=== PATIENT | male | born 1965 | race Caucasian/White ===

== ENCOUNTER → 2016-12-11 | Outpatient (CLI) | payer MEDICARE ==
[~2016-12-11] MED LIST: /MOXI40TA OR; ACET65TA OR; ALBUTEROL INH; HYDR25TA6 OR; LEVO25TABR OR; LIPI10TA OR; PERC5TAB8 OR; ZEST10TA OR; ZOCO40TA PO
--- NOTE | 2016-12-11 13:35 | REP ---
CERVICAL SPINE SERIES, COMPLETE: 12/11/2016. Comparison: 10/15/2006. Clinical history: Neck pain. Stiffness. Findings: Eight views were provided. There is slight reversal of the normal cervical lordosis unchanged. Cervical spondylosis with anterior osteophytes greatest at C2-3 and C3-4. The C7 level is not well depicted except on the swimmer's projection. The disc space heights are maintained. There is no compression deformity. Flexion and extension shows slight decreased range of motion but no instability. The C1-2 relationships were normal on all views. Some hypertrophic facet changes are noted but no definite foraminal encroachment. Impression: 1. Degenerative disc changes at C2-3 and C3-4 with anterior osteophytes but no disc space narrowing. 2. Reversal of the lordosis may reflect some spasm, but the appearance is unchanged. Decreased range of motion also may suggest spasm. No acute bony finding. Signed by Trent Chakraborty MD 12/11/2016 02:30 P
== END ==
LOC: M RAD 09:49
PROVIDERS: ATTEND Family Medicine
DX: M50.31 Other cervical disc degeneration, high cervical region (principal)

== ENCOUNTER 2016-12-21 10:16 | Emergency (ER) | payer MEDICARE ==
--- NOTE | 2016-12-21 12:02 | EDDOCDS ---
Physician Documentation [facility] Name: Bill Laboy Age: 51 yrs Sex: Male : 1965 Arrival Date: 12/21/2016 Time: 10:16 Bed TR7 Private MD: Andres Mcmahan A. Disposition: 12/21/16 11:49 Discharged to Home/Self Care. Impression: Unilateral inguinal hernia, without obstruction or gangrene, recurrent - LEFT. - Condition is Stable. - Discharge Instructions: Inguinal Hernia, Adult. - Medication Reconciliation, Local Pharmacy Hours form. - Follow up: Ivan Lux DO; When: Call to arrange an appointment; Reason: Further diagnostic work-up, Recheck today's complaints, Continuance of care. - Problem is new. - Symptoms are unchanged. Historical: - Allergies: Morphine (color turns green); - Home Meds: 1. levothyroxine 75 mcg Oral cap 1 cap once daily (Last dose: 12/21/2016 04:30) 2. hydrochlorothiazide 25 mg Oral tab 1 tab once daily (Last dose: 12/21/2016 07:30) 3. Vitamin C 500 mg Oral tab daily (Last dose: 12/21/2016 07:30) 4. multivitamin Oral tab 1 tablet daily (Last dose: 12/21/2016 07:30) 5. prednisone 20 mg Oral tab once daily (Last dose: 12/21/2016 07:30) 6. Coricidin HBP Day-Night 10-200 mg(dy)/2 -15-500 mg(nt) oral TCSq daily (Last dose: 12/21/2016 07:30) - PMHx: Hypertension; Hypothyroidism; - PSHx: right knee arthroscopy; Hernia repair- Left inguinal; Hernia repair- Right inguinal; hernia repair bilateral; - Social history: Smoking status: Patient states former smoker of tobacco. No barriers to communication noted, The patient speaks fluent Swedish. - Family history: Not pertinent. - : The pt / caregiver states he / she is not on anticoagulants. Home medication list is obtained from the patient. - Exposure Risk Screening:: None identified. Vital Signs: 12/21 10:18 BP 147 / 91; Pulse 86; Resp 16; Temp 97.8(O); Pulse Ox 96% on R/A; Weight 127.91 kg / elp 281.99 lbs (R); Height 5 ft. 11 in. (180.34 cm) (R); 11:58 BP 134 / 78; Pulse 80; Resp 16; Temp 97.3(T); Pulse Ox 95% on R/A; dwg 10:18 Body Mass Index 39.33 (127.91 kg, 180.34 cm) elp MDM: 11:51 Financial registration complete. lg Signatures: Ivan Dee RN RN [facility] Astrid Bravo RN RN kpj Ganter, LoriLee, Reg Reg lg Jignesh Bradshaw, SHAYY LUCAS btw MTDD
--- NOTE | 2016-12-21 12:02 | EDDOCDS ---
Nurse's Notes [facility] Name: Bill Laboy Age: 51 yrs Sex: Male : 1965 Arrival Date: 12/21/2016 Time: 10:16 Bed TR7 Private MD: Andres Mcmahan A. Diagnosis: Unilateral inguinal hernia, without obstruction or gangrene, recurrent-LEFT Presentation: 12/21 10:37 Presenting complaint: Patient states: pain left groin x 1 day. Adult Sepsis Screening: [facility] The patient does not have new or worsening altered mentation. Patient's respiratory rate is less than 22. Systolic blood pressure is greater than 100. Patient has a qSOFA score of 0- Negative Sepsis Screen. Suicide/Homicide risk assessment- the patient denies having any suicidal and/or homicidal ideations and does not present with any other emotional, behavioral or mental health complaints. Status: Patient is not a field service technician or dependent. Transition of care: patient was not received from another setting of care. 10:37 Acuity: ESTELA Level 3 [facility] 10:37 Method Of Arrival: Walkin/Carried/Asstd [facility] Triage Assessment: 10:43 General: Appears in no apparent distress, Behavior is appropriate for age, pleasant. [facility] Pain: Location: left inguinal area Pain currently is 10 out of 10 on a pain scale. Pt Declines HIV testing. Neurological: Level of Consciousness is awake, alert, Oriented to person, place, time. Respiratory: Airway is patent Respiratory effort is even, unlabored, Respiratory pattern is regular, symmetrical. GI: Reports lower abdominal pain, Pain is 10 out of 10 on a pain scale. Derm: Skin is pink, warm & dry. Historical: - Allergies: Morphine (color turns green); - Home Meds: 1. levothyroxine 75 mcg Oral cap 1 cap once daily (Last dose: 12/21/2016 04:30) 2. hydrochlorothiazide 25 mg Oral tab 1 tab once daily (Last dose: 12/21/2016 07:30) 3. Vitamin C 500 mg Oral tab daily (Last dose: 12/21/2016 07:30) 4. multivitamin Oral tab 1 tablet daily (Last dose: 12/21/2016 07:30) 5. prednisone 20 mg Oral tab once daily (Last dose: 12/21/2016 07:30) 6. Coricidin HBP Day-Night 10-200 mg(dy)/2 -15-500 mg(nt) oral TCSq daily (Last dose: 12/21/2016 07:30) - PMHx: Hypertension; Hypothyroidism; - PSHx: right knee arthroscopy; Hernia repair- Left inguinal; Hernia repair- Right inguinal; hernia repair bilateral; - Social history: Smoking status: Patient states former smoker of tobacco. No barriers to communication noted, The patient speaks fluent Argentine. - Family history: Not pertinent. - : The pt / caregiver states he / she is not on anticoagulants. Home medication list is obtained from the patient. - Exposure Risk Screening:: None identified. Screenin:59 Screening information is obtained from the patient. Fall risk: No risks identified. dwg Assistance ADL's: requires no assistance with activities of daily living. Abuse/DV Screen: The patient / caregiver reports he/she is: not in a situation that causes fear, pain or injury. Nutritional screening: No deficits noted. Advance Directives: Currently, there is no health care proxy. There is no active DNR order. There is no living will. There is no Power of Dean Of Graduate Studies. Advance directive information has not previously been placed in an [facility] medical record. Further advance directive information is declined. home support is adequate. Assessment: 11:14 General: Appears in no apparent distress, Behavior is appropriate for age. Pain: dsf Location: left inguinal area Pain currently is 8 out of 10 on a pain scale. Quality of pain is described as sharp, Pain began 2-3 days ago Is intermittent. Neurological: Level of Consciousness is awake, alert. Cardiovascular: Capillary refill < 3 seconds. Respiratory: Airway is patent Respiratory effort is even, unlabored, Respiratory pattern is regular, symmetrical. GI: Abdomen is obese. Derm: Skin is pink, warm & dry. Vital Signs: 10:18 BP 147 / 91; Pulse 86; Resp 16; Temp 97.8(O); Pulse Ox 96% on R/A; Weight 127.91 kg elp (R); Height 5 ft. 11 in. (180.34 cm) (R); 11:58 BP 134 / 78; Pulse 80; Resp 16; Temp 97.3(T); Pulse Ox 95% on R/A; dwg 10:18 Body Mass Index 39.33 (127.91 kg, 180.34 cm) elp Vitals: 10:18 Log In Time: December 21, 2016 at 10:15. elp ED Course: 10:17 Patient visited by Colleen Pond PCA. elp 10:17 Patient moved to Waiting elp 10:18 Andres Mcmahan is Private Physician. elp 10:18 Patient visited by Colleen Pond PCA. elp 10:18 Patient moved to Pre RCE elp 10:38 Triage Initiated kpj 11:12 Patient moved to Triage 3 dsf 11:15 Patient visited by Brea Rosas RN. dsf 11:37 [facility] btw 11:37 Ivett Salinas MD is Attending Physician. btw 11:37 Patient visited by Jignesh Bradshaw PA. btw 11:48 Ivan Lux DO is Referral Physician. btw 11:58 Patient moved to TR7 dsf 12:00 The patient / caregiver is instructed regarding the plan of care and ED course. dwg 12:00 No IV's were initiated during this patient's visit. No procedures done that require dwg assistance. Order Results: There are currently no results for this order. Outcome: 11:49 Discharge ordered by Provider. btw 11:59 Discharge Assessment: Patient awake, alert and oriented x 3. No cognitive and/or dwg functional deficits noted. Patient verbalized understanding of disposition instructions. patient administered narcotics - no. The following High Risk Discharge criteria are identified: None. Discharged to home ambulatory. Condition: good Condition: stable. No special radiology studies were completed. Property sent home with patient. 12:00 Patient left the ED. dwg Signatures: Ivan Dee, RN RN dwg Astrid Bravo RN RN [facility] Jignesh Bradshaw PA PA btw Brea Rosas RN RN [facility] Colleen Pond PCA CPS TEAM LEAD elp MTDD
--- NOTE | 2016-12-23 13:02 | EDDOCDS ---
Nurse's Notes [facility] Name: Bill Laboy Age: 51 yrs Sex: Male : 1965 Arrival Date: 12/21/2016 Time: 10:16 Bed TR7 Private MD: Andres Mcmahan A. Diagnosis: Unilateral inguinal hernia, without obstruction or gangrene, recurrent-LEFT Presentation: 12/21 10:37 Presenting complaint: Patient states: pain left groin x 1 day. Adult Sepsis Screening: [facility] The patient does not have new or worsening altered mentation. Patient's respiratory rate is less than 22. Systolic blood pressure is greater than 100. Patient has a qSOFA score of 0- Negative Sepsis Screen. Suicide/Homicide risk assessment- the patient denies having any suicidal and/or homicidal ideations and does not present with any other emotional, behavioral or mental health complaints. Status: Patient is not a card services specialist or dependent. Transition of care: patient was not received from another setting of care. 10:37 Acuity: ESTELA Level 3 [facility] 10:37 Method Of Arrival: Walkin/Carried/Asstd [facility] Triage Assessment: 10:43 General: Appears in no apparent distress, Behavior is appropriate for age, pleasant. [facility] Pain: Location: left inguinal area Pain currently is 10 out of 10 on a pain scale. Pt Declines HIV testing. Neurological: Level of Consciousness is awake, alert, Oriented to person, place, time. Respiratory: Airway is patent Respiratory effort is even, unlabored, Respiratory pattern is regular, symmetrical. GI: Reports lower abdominal pain, Pain is 10 out of 10 on a pain scale. Derm: Skin is pink, warm & dry. Historical: - Allergies: Morphine (color turns green); - Home Meds: 1. levothyroxine 75 mcg Oral cap 1 cap once daily (Last dose: 12/21/2016 04:30) 2. hydrochlorothiazide 25 mg Oral tab 1 tab once daily (Last dose: 12/21/2016 07:30) 3. Vitamin C 500 mg Oral tab daily (Last dose: 12/21/2016 07:30) 4. multivitamin Oral tab 1 tablet daily (Last dose: 12/21/2016 07:30) 5. prednisone 20 mg Oral tab once daily (Last dose: 12/21/2016 07:30) 6. Coricidin HBP Day-Night 10-200 mg(dy)/2 -15-500 mg(nt) oral TCSq daily (Last dose: 12/21/2016 07:30) - PMHx: Hypertension; Hypothyroidism; - PSHx: right knee arthroscopy; Hernia repair- Left inguinal; Hernia repair- Right inguinal; hernia repair bilateral; - Social history: Smoking status: Patient states former smoker of tobacco. No barriers to communication noted, The patient speaks fluent Kittitian. - Family history: Not pertinent. - : The pt / caregiver states he / she is not on anticoagulants. Home medication list is obtained from the patient. - Exposure Risk Screening:: None identified. Screenin:59 Screening information is obtained from the patient. Fall risk: No risks identified. dwg Assistance ADL's: requires no assistance with activities of daily living. Abuse/DV Screen: The patient / caregiver reports he/she is: not in a situation that causes fear, pain or injury. Nutritional screening: No deficits noted. Advance Directives: Currently, there is no health care proxy. There is no active DNR order. There is no living will. There is no Power of Push Button Switch Assembler. Advance directive information has not previously been placed in an [facility] medical record. Further advance directive information is declined. home support is adequate. Assessment: 11:14 General: Appears in no apparent distress, Behavior is appropriate for age. Pain: dsf Location: left inguinal area Pain currently is 8 out of 10 on a pain scale. Quality of pain is described as sharp, Pain began 2-3 days ago Is intermittent. Neurological: Level of Consciousness is awake, alert. Cardiovascular: Capillary refill < 3 seconds. Respiratory: Airway is patent Respiratory effort is even, unlabored, Respiratory pattern is regular, symmetrical. GI: Abdomen is obese. Derm: Skin is pink, warm & dry. Vital Signs: 10:18 BP 147 / 91; Pulse 86; Resp 16; Temp 97.8(O); Pulse Ox 96% on R/A; Weight 127.91 kg elp (R); Height 5 ft. 11 in. (180.34 cm) (R); 11:58 BP 134 / 78; Pulse 80; Resp 16; Temp 97.3(T); Pulse Ox 95% on R/A; dwg 10:18 Body Mass Index 39.33 (127.91 kg, 180.34 cm) elp Vitals: 10:18 Log In Time: December 21, 2016 at 10:15. elp ED Course: 10:17 Patient visited by Colleen Pond PCA. elp 10:17 Patient moved to Waiting elp 10:18 Andres Mcmahan is Private Physician. elp 10:18 Patient visited by Colleen Pond PCA. elp 10:18 Patient moved to Pre RCE elp 10:38 Triage Initiated kpj 11:12 Patient moved to Triage 3 dsf 11:15 Patient visited by Brea Rosas RN. dsf 11:37 Jignesh Bradshaw PA is [facility]. btw 11:37 Ivett Salinas MD is Attending Physician. btw 11:37 Patient visited by Jignesh Bradshaw PA. btw 11:48 Ivan Lux DO is Referral Physician. btw 11:58 Patient moved to TR7 dsf 12:00 The patient / caregiver is instructed regarding the plan of care and ED course. dwg 12:00 No IV's were initiated during this patient's visit. No procedures done that require dwg assistance. 12:07 Patient name changed from Bill\S\Petey\S\[place]\S\ to Bill\S\A\S\[place]. EDMS 12:08 [facility] Payment Agreement was scanned into [employer] and attached to record. lg 15:08 T-Sheet-- Draft Copy was scanned into [employer] and attached to record. gb Order Results: There are currently no results for this order. Outcome: 11:49 Discharge ordered by Provider. btw 11:59 Discharge Assessment: Patient awake, alert and oriented x 3. No cognitive and/or dwg functional deficits noted. Patient verbalized understanding of disposition instructions. patient administered narcotics - no. The following High Risk Discharge criteria are identified: None. Discharged to home ambulatory. Condition: good Condition: stable. No special radiology studies were completed. Property sent home with patient. 12:00 Patient left the ED. dwg Signatures: Dispatcher [employer] EDMS Ivan Dee RN RN dwg Jobson, Karen, RN RN [facility] Avis Butts, Reg Reg Roxana Mauro, Reg Reg lg Jignesh Bradshaw PA PA btw Rosas,Brea,RN RN dsf Patchen, Colleen, KNOT BUMPER KNOT BUMPER elp Chart Complete MTDD
--- NOTE | 2016-12-23 13:02 | EDDOCDS ---
Physician Documentation [facility] Name: Bill Laboy Age: 51 yrs Sex: Male : 1965 Arrival Date: 12/21/2016 Time: 10:16 Bed TR7 Private MD: Andres Mcmahan A. Disposition: 12/21/16 11:49 Discharged to Home/Self Care. Impression: Unilateral inguinal hernia, without obstruction or gangrene, recurrent - LEFT. - Condition is Stable. - Discharge Instructions: Inguinal Hernia, Adult. - Medication Reconciliation, Local Pharmacy Hours form. - Follow up: Ivan Lux DO; When: Call to arrange an appointment; Reason: Further diagnostic work-up, Recheck today's complaints, Continuance of care. - Problem is new. - Symptoms are unchanged. Historical: - Allergies: Morphine (color turns green); - Home Meds: 1. levothyroxine 75 mcg Oral cap 1 cap once daily (Last dose: 12/21/2016 04:30) 2. hydrochlorothiazide 25 mg Oral tab 1 tab once daily (Last dose: 12/21/2016 07:30) 3. Vitamin C 500 mg Oral tab daily (Last dose: 12/21/2016 07:30) 4. multivitamin Oral tab 1 tablet daily (Last dose: 12/21/2016 07:30) 5. prednisone 20 mg Oral tab once daily (Last dose: 12/21/2016 07:30) 6. Coricidin HBP Day-Night 10-200 mg(dy)/2 -15-500 mg(nt) oral TCSq daily (Last dose: 12/21/2016 07:30) - PMHx: Hypertension; Hypothyroidism; - PSHx: right knee arthroscopy; Hernia repair- Left inguinal; Hernia repair- Right inguinal; hernia repair bilateral; - Social history: Smoking status: Patient states former smoker of tobacco. No barriers to communication noted, The patient speaks fluent Amharic. - Family history: Not pertinent. - : The pt / caregiver states he / she is not on anticoagulants. Home medication list is obtained from the patient. - Exposure Risk Screening:: None identified. Vital Signs: 12/21 10:18 BP 147 / 91; Pulse 86; Resp 16; Temp 97.8(O); Pulse Ox 96% on R/A; Weight 127.91 kg / elp 281.99 lbs (R); Height 5 ft. 11 in. (180.34 cm) (R); 11:58 BP 134 / 78; Pulse 80; Resp 16; Temp 97.3(T); Pulse Ox 95% on R/A; dwg 10:18 Body Mass Index 39.33 (127.91 kg, 180.34 cm) elp MDM: 11:51 Financial registration complete. lg 12:08 [facility] Payment Agreement was scanned into [employer] and attached to record. lg 15:08 T-Sheet-- Draft Copy was scanned into [employer] and attached to record. gb Signatures: Ivan Dee RN RN Astrid Mendez, RN RN Avis Manrique, Reg Reg gb Roxana Mauro, Reg Reg lg Jignesh Bradshaw, SHAYY LUCAS btw The chart was reviewed and I authenticate all verbal orders and agree with the evaluation and treatment provided.Attachments: 12:08 [facility] Payment Agreement lg 15:08 T-Sheet-- Draft Copy gb Chart Complete MTDD
--- NOTE | 2016-12-23 13:02 | EDDOCDS ---
Physician Documentation [facility] Name: Bill Laboy Age: 51 yrs Sex: Male : 1965 Arrival Date: 12/21/2016 Time: 10:16 Bed TR7 Private MD: Andres Mcmahan A. Disposition: 12/21/16 11:49 Discharged to Home/Self Care. Impression: Unilateral inguinal hernia, without obstruction or gangrene, recurrent - LEFT. - Condition is Stable. - Discharge Instructions: Inguinal Hernia, Adult. - Medication Reconciliation, Local Pharmacy Hours form. - Follow up: Ivan Lux DO; When: Call to arrange an appointment; Reason: Further diagnostic work-up, Recheck today's complaints, Continuance of care. - Problem is new. - Symptoms are unchanged. Historical: - Allergies: Morphine (color turns green); - Home Meds: 1. levothyroxine 75 mcg Oral cap 1 cap once daily (Last dose: 12/21/2016 04:30) 2. hydrochlorothiazide 25 mg Oral tab 1 tab once daily (Last dose: 12/21/2016 07:30) 3. Vitamin C 500 mg Oral tab daily (Last dose: 12/21/2016 07:30) 4. multivitamin Oral tab 1 tablet daily (Last dose: 12/21/2016 07:30) 5. prednisone 20 mg Oral tab once daily (Last dose: 12/21/2016 07:30) 6. Coricidin HBP Day-Night 10-200 mg(dy)/2 -15-500 mg(nt) oral TCSq daily (Last dose: 12/21/2016 07:30) - PMHx: Hypertension; Hypothyroidism; - PSHx: right knee arthroscopy; Hernia repair- Left inguinal; Hernia repair- Right inguinal; hernia repair bilateral; - Social history: Smoking status: Patient states former smoker of tobacco. No barriers to communication noted, The patient speaks fluent Malay. - Family history: Not pertinent. - : The pt / caregiver states he / she is not on anticoagulants. Home medication list is obtained from the patient. - Exposure Risk Screening:: None identified. Vital Signs: 12/21 10:18 BP 147 / 91; Pulse 86; Resp 16; Temp 97.8(O); Pulse Ox 96% on R/A; Weight 127.91 kg / elp 281.99 lbs (R); Height 5 ft. 11 in. (180.34 cm) (R); 11:58 BP 134 / 78; Pulse 80; Resp 16; Temp 97.3(T); Pulse Ox 95% on R/A; dwg 10:18 Body Mass Index 39.33 (127.91 kg, 180.34 cm) elp MDM: 11:51 Financial registration complete. lg 12:08 [facility] Payment Agreement was scanned into [employer] and attached to record. lg 15:08 T-Sheet-- Draft Copy was scanned into [employer] and attached to record. gb Signatures: Ivan Dee RN RN Astrid Mendez, RN RN Avis Manrique, Reg Reg gb Roxana Mauro, Reg Reg lg Jignesh Bradshaw, SHAYY LUCAS btw The chart was reviewed and I authenticate all verbal orders and agree with the evaluation and treatment provided.Attachments: 12:08 [facility] Payment Agreement lg 15:08 T-Sheet-- Draft Copy gb Chart Complete MTDD
== END 2016-12-21 12:00 | disposition home or self-care (01) ==
LOC: M ED 10:16
DX: K40.90 Unilateral inguinal hernia, without obstruction or gangrene, not specified as recurrent (principal); I10 Essential (primary) hypertension; E03.9 Hypothyroidism, unspecified; Z79.899 Other long term (current) drug therapy; Z79.52 Long term (current) use of systemic steroids; Z88.5 Allergy status to narcotic agent; Z87.891 Personal history of nicotine dependence

== ENCOUNTER → 2017-03-14 | Outpatient (CLI) | payer MEDICARE ==
[~2017-03-14] VITALS: Ht 180.3 cm; Wt 127.0 kg
[~2017-03-14] MED LIST changes: +ASPI81TA85 PO; +HYDR25TAB PO; +LIDOCAINE 2% INJ 100 MG/5 ML SDV (FOR ANES.) As Ordered ONE; +LIPI20TA PO; +LISI-538 PO; +MULT1TAB28 PO; +NS 1,000 ML IV ONE; +PROPOFOL 500 MG/50 ML VIAL As Ordered ONE; +SYNT75TA PO; +VITA-130 PO
--- NOTE | 2017-03-14 11:13 | ROOR ---
Patient Name: Bill aLboy Procedure Date: 03/14/2017 10:56 AM Date of : 1965 Age: 51 Room: [facility] Gender: Male Note Status: Finalized Procedure: Upper GI endoscopy +n Biopsies Indications: Heartburn Providers: Matthew Shirley MD Referring MD: Andres Mcmahan MD Requesting Provider: Medicines: Monitored Anesthesia Care Complications: No immediate complications. Procedure: Pre-Anesthesia Assessment: - The heart rate, respiratory rate, oxygen saturations, blood pressure, adequacy of pulmonary ventilation, and response to care were monitored throughout the procedure. The Endoscope was introduced through the mouth, and advanced to the second part of duodenum. The upper GI endoscopy was accomplished without difficulty. The patient tolerated the procedure well. Findings: The Z-line was regular and was found 40 cm from the incisors. Multiple biopsies were obtained with cold forceps for evaluation to rule out Hi's Esophagus randomly at the gastroesophageal junction. No other significant abnormalities were identified in a careful examination of the stomach. The exam of the duodenum was otherwise normal. Impression: - Z-line regular, 40 cm from the incisors. - Multiple biopsies were obtained at the gastroesophageal junction. - The examination was otherwise normal. Recommendation: - Patient has a contact number available for emergencies. The signs and symptoms of potential delayed complications were discussed with the patient. Return to normal activities tomorrow. Written discharge instructions were provided to the patient. - High fiber diet. - Discharge patient to home. - Follow an antireflux regimen. - Continue present medications. - Await pathology results. - Telephone GI clinic for pathology results in 1 week. - Check Portal Online for Path Results.([email or web address] - Return to referring physician. - The findings and recommendations were discussed with the patient's family. Matthew Shirley MD Matthew Shirley MD 03/14/2017 11:13:25 AM This report has been signed electronically. Number of Addenda: 0 Note Initiated On: 03/14/2017 10:56 AM Estimated Blood Loss: Estimated blood loss: none.
--- NOTE | 2017-03-14 11:27 | ROOR ---
Patient Name: Bill Laboy Procedure Date: 03/14/2017 10:58 AM Date of : 1965 Age: 51 Room: [facility] Gender: Male Note Status: Finalized Procedure: Colonoscopy to Cecum Indications: Screening for colorectal malignant neoplasm Providers: Matthew Shirley MD Referring MD: Andres Mcmahan MD Requesting Provider: Medicines: Monitored Anesthesia Care Complications: No immediate complications. Procedure: Pre-Anesthesia Assessment: - The heart rate, respiratory rate, oxygen saturations, blood pressure, adequacy of pulmonary ventilation, and response to care were monitored throughout the procedure. The Colonoscope was introduced through the anus and advanced to the cecum, identified by appendiceal orifice and ileocecal valve. The colonoscopy was performed without difficulty. The patient tolerated the procedure well. The quality of the bowel preparation was good. Findings: The perianal and digital rectal examinations were normal. Non-bleeding internal hemorrhoids were found during retroflexion. The hemorrhoids were small and Grade I (internal hemorrhoids that do not prolapse). No other significant abnormalities were identified in a careful examination of the remainder of the colon. The exam was otherwise without abnormality on direct and retroflexion views. Impression: - Non-bleeding internal hemorrhoids. - The examination was otherwise normal on direct and retroflexion views. - No specimens collected. - The exam was otherwise normal to the cecum. Recommendation: - Patient has a contact number available for emergencies. The signs and symptoms of potential delayed complications were discussed with the patient. Return to normal activities tomorrow. Written discharge instructions were provided to the patient. - High fiber diet. - Discharge patient to home. - Continue present medications. - Repeat colonoscopy in 10 years for screening purposes. - Return to referring physician. - The findings and recommendations were discussed with the patient's family. Matthew Shirley MD Matthew Shirley MD 03/14/2017 11:27:13 AM This report has been signed electronically. Number of Addenda: 0 Note Initiated On: 03/14/2017 10:58 AM Estimated Blood Loss: Estimated blood loss: none.
[2017-03-14 12:01] VITALS: BP 117/73
== END | disposition home or self-care (01) ==
LOC: M OPP 09:45
PROVIDERS: ATTEND Internal Medicine Gastroenterology
DX: Z12.11 Encounter for screening for malignant neoplasm of colon (principal); K64.0 First degree hemorrhoids; R12 Heartburn; I10 Essential (primary) hypertension; E78.5 Hyperlipidemia, unspecified; E03.9 Hypothyroidism, unspecified; K44.9 Diaphragmatic hernia without obstruction or gangrene; G47.30 Sleep apnea, unspecified; L40.9 Psoriasis, unspecified; Z88.5 Allergy status to narcotic agent; Z79.82 Long term (current) use of aspirin; Z79.899 Other long term (current) drug therapy; F17.210 Nicotine dependence, cigarettes, uncomplicated
CPT/HCPCS: 43239; 88305; 99156; 99157; G0121

== ENCOUNTER → 2017-06-13 | Outpatient (CLI) | payer OTHER ==
[~2017-06-13] MED LIST changes: -LIDOCAINE 2% INJ 100 MG/5 ML SDV (FOR ANES.) As Ordered ONE; -NS 1,000 ML IV ONE; -PROPOFOL 500 MG/50 ML VIAL As Ordered ONE; -VITA-130 PO; +VITA500T PO
[2017-06-13 11:28] LABS: MEAN CORPUSCULAR HEMOGLOBIN 33.6 pg (27.0-33.0); MEAN CORPUSCULAR HGB CONC 36.4 g/dl (32.0-36.5); MEAN CORPUSCULAR VOLUME 92.4 fl (80.0-96.0); RED CELL DISTRIBUTION WIDTH 12.6 % (11.5-14.5); WHITE BLOOD COUNT 4.7 K/mm3 (4.0-10.0)
[2017-06-13 13:31] LABS: ALBUMIN/GLOBULIN RATIO 1.38 (1.00-1.93); ALKALINE PHOSPHATASE 56 U/L (45-117); ALT/SGPT 43 U/L (12-78); ANION GAP 9 MEQ/L (8-16); AST/SGOT 19 U/L (15-37); BILIRUBIN,TOTAL 0.5 MG/DL (0.2-1.0); BLOOD UREA NITROGEN 12 MG/DL (7-18); CARBON DIOXIDE LEVEL 28 MEQ/L (21-32); CHLORIDE LEVEL 103 MEQ/L (98-107); CHOLESTEROL LEVEL 158 MG/DL (<200); CREATININE FOR GFR 0.79 MG/DL (0.70-1.30); FREE T4 1.08 NG/DL (0.76-1.46); GLOMERULAR FILTRATION RATE > 60.0 (>56); GLUCOSE, FASTING 94 MG/DL (70-105); POTASSIUM SERUM 3.9 MEQ/L (3.5-5.1); SODIUM LEVEL 140 MEQ/L (136-145); TOTAL PROTEIN 6.9 GM/DL (6.4-8.2); TRIGLYCERIDES LEVEL 197 MG/DL (<150)
== END ==
LOC: M LAB 10:25
PROVIDERS: ATTEND Family Medicine
DX: E03.9 Hypothyroidism, unspecified (principal); I10 Essential (primary) hypertension

== ENCOUNTER 2018-01-05 10:02 | Emergency (ER) | payer OTHER ==
[2018-01-05] MEDS: NS 1,000 ML IV ×2 (10:29)
[2018-01-05] MEDS: ONDANSETRON 4MG/2ML VIAL (J2405) IV ×2 (10:30)
[2018-01-05] MEDS: MORPHINE 4 MG/ML 1ML VIAL (J2270) IV ×2 (10:30)
[2018-01-05 10:36] LABS: BASO % 0.6 % (0.0-1.0); EOS # 0.1 10^3/uL (0.0-0.50); EOS % 1.9 % (0.0-3.0); HEMATOCRIT 46.8 % (42.0-52.0); HEMOGLOBIN 16.7 g/dl (14.0-18.0); IMMATURE GRANULOCYTE % 0.3 % (0-3.0); LYMPH # 1.5 10^3/uL (1.5-4.5); MEAN CORPUSCULAR HEMOGLOBIN 32.4 pg (27.0-33.0); MEAN CORPUSCULAR HGB CONC 35.7 g/dl (32.0-36.5); MEAN CORPUSCULAR VOLUME 90.9 fl (80.0-96.0); MONO # 0.5 10^3/uL (0.0-0.8); MONO % 8.2 % (0.0-5.0); NEUTROPHILS # 4.2 10^3/uL (1.8-7.7); PLATELET COUNT, AUTOMATED 199 10^3/uL (150-450); RED BLOOD COUNT 5.15 10^6/uL (4.30-6.10); RED CELL DISTRIBUTION WIDTH 11.5 % (11.5-14.5); WHITE BLOOD COUNT 6.4 10^3/uL (4.0-10.0)
[2018-01-05 11:00] LABS: ALBUMIN 4.1 GM/DL (3.2-5.2); ALBUMIN/GLOBULIN RATIO 1.21 (1.00-1.93); ALKALINE PHOSPHATASE 59 U/L (45-117); ALT/SGPT 59 U/L (12-78); ANION GAP 7 MEQ/L (8-16); AST/SGOT 21 U/L (7-37); BILIRUBIN,DIRECT 0.2 MG/DL (0.0-0.2); BILIRUBIN,TOTAL 0.7 MG/DL (0.2-1.0); BLOOD UREA NITROGEN 13 MG/DL (7-18); CARBON DIOXIDE LEVEL 29 MEQ/L (21-32); CHLORIDE LEVEL 102 MEQ/L (98-107); CREATININE FOR GFR 0.88 MG/DL (0.70-1.30); GLOMERULAR FILTRATION RATE > 60.0 (>56); GLUCOSE, FASTING 192 MG/DL (70-100); LIPASE 122 U/L (73-393); POTASSIUM SERUM 3.4 MEQ/L (3.5-5.1); SODIUM LEVEL 138 MEQ/L (136-145); TOTAL PROTEIN 7.5 GM/DL (6.4-8.2)
== END 2018-01-05 13:33 | disposition home or self-care (01) ==
LOC: M ED 10:02
DX: R10.9 Unspecified abdominal pain (principal); I10 Essential (primary) hypertension; E78.5 Hyperlipidemia, unspecified; G47.30 Sleep apnea, unspecified; K57.30 Diverticulosis of large intestine without perforation or abscess without bleeding; K80.20 Calculus of gallbladder without cholecystitis without obstruction; Z79.899 Other long term (current) drug therapy; Z88.5 Allergy status to narcotic agent
CPT/HCPCS: J2270

== ENCOUNTER → 2018-03-07 | Outpatient (CLI) | payer OTHER ==
[2018-03-07 10:49] LABS: BASO % 0.7 % (0.0-1.0); EOS # 0.1 10^3/uL (0.0-0.50); EOS % 1.9 % (0.0-3.0); HEMATOCRIT 44.7 % (42.0-52.0); HEMOGLOBIN 16.1 g/dl (13.5-17.5); IMMATURE GRANULOCYTE % 0.2 % (0-3.0); LYMPH # 1.5 10^3/uL (1.5-4.5); LYMPH % 25.6 % (24.0-44.0); MEAN CORPUSCULAR HEMOGLOBIN 32.7 pg (27.0-33.0); MEAN CORPUSCULAR VOLUME 90.7 fl (80.0-96.0); MONO # 0.7 10^3/uL (0.0-0.8); MONO % 11.5 % (0.0-5.0); NEUTROPHILS # 3.6 10^3/uL (1.8-7.7); NEUTROPHILS % 60.1 % (36.0-66.0); PLATELET COUNT, AUTOMATED 183 10^3/uL (150-450); RED BLOOD COUNT 4.93 10^6/uL (4.30-6.10); WHITE BLOOD COUNT 5.9 10^3/uL (4.0-10.0)
[2018-03-07 11:25] LABS: ALBUMIN 4.2 GM/DL (3.2-5.2); ALBUMIN/GLOBULIN RATIO 1.24 (1.00-1.93); ALKALINE PHOSPHATASE 61 U/L (45-117); ALT/SGPT 81 U/L (12-78); ANION GAP 7 MEQ/L (8-16); AST/SGOT 31 U/L (7-37); BILIRUBIN,TOTAL 0.6 MG/DL (0.2-1.0); BLOOD UREA NITROGEN 12 MG/DL (7-18); CALCIUM LEVEL 8.9 MG/DL (8.5-10.1); CARBON DIOXIDE LEVEL 28 MEQ/L (21-32); CHLORIDE LEVEL 103 MEQ/L (98-107); CHOLESTEROL LEVEL 178 MG/DL (<200); CHOLESTEROL RISK RATIO 5.393 (<5); CREATININE FOR GFR 0.94 MG/DL (0.70-1.30); FREE T3 3.6 PG/ML (2.2-4.0); GLOMERULAR FILTRATION RATE > 60.0 (>56); GLUCOSE, FASTING 135 MG/DL (70-100); HDL CHOLESTEROL 33 MG/DL (>40); LDL CHOLESTEROL 88.6 MG/DL (<100); NON-HDL-C 145 MG/DL; POTASSIUM SERUM 3.8 MEQ/L (3.5-5.1); SODIUM LEVEL 138 MEQ/L (136-145); TOTAL PROTEIN 7.6 GM/DL (6.4-8.2); TRIGLYCERIDES LEVEL 282 MG/DL (<150)
== END ==
LOC: M LAB 10:16
DX: E03.9 Hypothyroidism, unspecified (principal); I10 Essential (primary) hypertension
CPT/HCPCS: 84443

== ENCOUNTER → 2019-07-14 | Outpatient (CLI) | payer MEDICARE ==
[~2019-07-14] MED LIST changes: -/MOXI40TA OR; +ATOR40TA75; +AVEL1TAB2 OR; +MOME0.1C3
[2019-07-14 11:25] LABS: BASO % 0.8 % (0.0-1.0); EOS # 0.1 10^3/uL (0.0-0.5); EOS % 2.3 % (0.0-3.0); HEMATOCRIT 43.8 % (42.0-52.0); HEMOGLOBIN 15.3 g/dl (13.5-17.5); LYMPH # 1.1 10^3/uL (1.5-5.0); LYMPH % 22.3 % (24.0-44.0); MEAN CORPUSCULAR HEMOGLOBIN 32.1 pg (27.0-33.0); MEAN CORPUSCULAR HGB CONC 34.9 g/dl (32.0-36.5); MONO # 0.6 10^3/uL (0.0-0.8); MONO % 11.7 % (0.0-5.0); NEUTROPHILS % 62.9 % (36.0-66.0); PLATELET COUNT, AUTOMATED 175 10^3/uL (150-450); RED BLOOD COUNT 4.76 10^6/uL (4.30-6.10); WHITE BLOOD COUNT 4.8 10^3/uL (4.0-10.0)
[2019-07-14 11:43] LABS: HEMOGLOBIN A1c 5.7 %
[2019-07-14 12:08] LABS: ALBUMIN 4.2 GM/DL (3.2-5.2); ALT/SGPT 59 U/L (12-78); BILIRUBIN,TOTAL 0.9 MG/DL (0.2-1.0); BLOOD UREA NITROGEN 15 MG/DL (7-18); CALCIUM LEVEL 9.1 MG/DL (8.5-10.1); CARBON DIOXIDE LEVEL 31 MEQ/L (21-32); CHLORIDE LEVEL 102 MEQ/L (98-107); CHOLESTEROL LEVEL 163 MG/DL (<200); CHOLESTEROL RISK RATIO 5.093 (<5); CREATININE FOR GFR 0.92 MG/DL (0.70-1.30); FREE T3 3.1 PG/ML (2.2-4.0); FREE T4 1.07 NG/DL (0.76-1.46); GLOMERULAR FILTRATION RATE > 60.0 (>56); GLUCOSE, FASTING 99 MG/DL (70-100); HDL CHOLESTEROL 32 MG/DL (>40); LDL CHOLESTEROL 97 MG/DL (<100); NON-HDL-C 131 MG/DL; POTASSIUM SERUM 3.7 MEQ/L (3.5-5.1); SODIUM LEVEL 139 MEQ/L (136-145); TOTAL PROTEIN 7.1 GM/DL (6.4-8.2); TRIGLYCERIDES LEVEL 171 MG/DL (<150)
== END ==
LOC: M LAB 10:47
PROVIDERS: ATTEND Family Medicine
DX: I10 Essential (primary) hypertension (principal); Z79.899 Other long term (current) drug therapy

== ENCOUNTER → 2020-01-30 | Outpatient (CLI) | payer MEDICARE ==
[2020-01-30 10:02] LABS: APPEARANCE, URINE CLEAR (CLEAR); BACTERIA, URINE AUTO NEGATIVE (NEGATIVE); BILIRUBIN, URINE AUTO NEGATIVE (NEGATIVE); BLOOD, URINE BLOOD NEGATIVE (NEGATIVE); COLOR, URINE YELLOW (YELLOW); GLUCOSE, URINE (UA) AUTO NEGATIVE (NEGATIVE); KETONE, URINE AUTO NEGATIVE (NEGATIVE); LEUKOCYTE ESTERASE, URINE AUTO NEGATIVE (NEGATIVE); MUCUS, URINE SMALL (NEGATIVE); NITRITE, URINE AUTO NEGATIVE (NEGATIVE); PROTEIN, URINE AUTO 2+ mg/dL (NEGATIVE); RBC, URINE AUTO 2 /HPF (0-3); SQUAMOUS EPITHELIAL CELL UR AU 0 /HPF (0-6); UROBILINOGEN, URINE AUTO 0.2 mg/dL (0.0-2.0); WBC, URINE AUTO 1 /HPF (0-3)
[2020-01-30 10:04] LABS: HEMOGLOBIN 15.6 g/dl (13.5-17.5); MEAN CORPUSCULAR HEMOGLOBIN 31.8 pg (27.0-33.0); MEAN CORPUSCULAR HGB CONC 34.7 g/dl (32.0-36.5); MEAN CORPUSCULAR VOLUME 91.6 fl (80.0-96.0); PLATELET COUNT, AUTOMATED 170 10^3/uL (150-450); RED BLOOD COUNT 4.91 10^6/uL (4.30-6.10)
[2020-01-30 10:29] LABS: ALT/SGPT 71 U/L (12-78); BILIRUBIN,TOTAL 0.8 MG/DL (0.2-1.0); BLOOD UREA NITROGEN 12 MG/DL (7-18); CALCIUM LEVEL 9.3 MG/DL (8.5-10.1); CARBON DIOXIDE LEVEL 30 MEQ/L (21-32); CHLORIDE LEVEL 103 MEQ/L (98-107); CREATININE FOR GFR 0.86 MG/DL (0.70-1.30); GLOMERULAR FILTRATION RATE > 60.0 (>56); GLUCOSE, FASTING 127 MG/DL (70-100); POTASSIUM SERUM 4.1 MEQ/L (3.5-5.1); SODIUM LEVEL 137 MEQ/L (136-145); TOTAL PROTEIN 7.3 GM/DL (6.4-8.2)
[2020-01-30 13:01] LABS: HEMOGLOBIN A1c 7.1 %
== END ==
LOC: M LAB 09:26
PROVIDERS: ATTEND Family Medicine
DX: E03.9 Hypothyroidism, unspecified (principal); R73.01 Impaired fasting glucose; I10 Essential (primary) hypertension

== ENCOUNTER → 2020-08-17 | Outpatient (CLI) | payer MEDICARE ==
[~2020-08-17] MED LIST changes: -ASPI81TA85 PO; +ASPI81TA86 PO; +VITA-243 PO; -VITA500T PO
[2020-08-17 12:28] LABS: BASO # 0.1 10^3/uL (0.0-0.2); BASO % 0.7 % (0.0-1.0); EOS # 0.1 10^3/uL (0.0-0.5); EOS % 1.6 % (0.0-3.0); HEMATOCRIT 43.9 % (42.0-52.0); LYMPH # 1.2 10^3/uL (1.5-5.0); MEAN CORPUSCULAR HEMOGLOBIN 30.7 pg (27.0-33.0); MEAN CORPUSCULAR HGB CONC 34.2 g/dl (32.0-36.5); MONO # 0.7 10^3/uL (0.0-0.8); MONO % 9.4 % (0.0-5.0); NEUTROPHILS % 70.9 % (36.0-66.0); PLATELET COUNT, AUTOMATED 174 10^3/uL (150-450); RED BLOOD COUNT 4.88 10^6/uL (4.30-6.10)
[2020-08-17 12:48] LABS: C REACTIVE PROTEIN QUANTITATIV < 0.30 MG/DL (0.00-0.30); RHEUMATOID FACTOR QUANT < 10.0 IU/ML (<15.0); URIC ACID 6.4 MG/DL (3.5-7.2)
[2020-08-17 13:06] LABS: ERYTHROCYTE SEDIMENTATION RATE 10 mm/hr (0-20)
[2020-08-18 16:12] LABS: Lyme Disease IgG/IgM Antibodie <0.91 ISR (0.00-0.90); Lyme Disease IgM Ab Quantitati <0.80 index (0.00-0.79)
== END ==
LOC: M LAB 11:48
PROVIDERS: ATTEND Physician Assistant Surgical
DX: M17.0 Bilateral primary osteoarthritis of knee (principal); Z79.899 Other long term (current) drug therapy

== ENCOUNTER → 2020-11-23 | Outpatient (CLI) | payer MEDICARE ==
[2020-11-23 10:27] LABS: ALBUMIN 3.8 GM/DL (3.2-5.2); ALT/SGPT 51 U/L (12-78); BILIRUBIN,TOTAL 0.5 MG/DL (0.2-1.0); BLOOD UREA NITROGEN 14 MG/DL (7-18); CALCIUM LEVEL 8.9 MG/DL (8.5-10.1); CARBON DIOXIDE LEVEL 32 MEQ/L (21-32); CHLORIDE LEVEL 100 MEQ/L (98-107); CREATININE FOR GFR 0.98 MG/DL (0.70-1.30); FREE T4 1.12 NG/DL (0.76-1.46); GLOMERULAR FILTRATION RATE > 60.0 (>56); GLUCOSE, FASTING 182 MG/DL (70-100); POTASSIUM SERUM 3.6 MEQ/L (3.5-5.1); SODIUM LEVEL 139 MEQ/L (136-145); TOTAL PROTEIN 6.9 GM/DL (6.4-8.2)
== END ==
LOC: M LAB 08:55
PROVIDERS: ATTEND Family Medicine
DX: E03.9 Hypothyroidism, unspecified (principal); R73.01 Impaired fasting glucose

== ENCOUNTER 2021-04-27 07:41 | Emergency (ER) | payer MEDICARE, OTHER ==
[~2021-04-27] VITALS: Ht 177.8 cm; Wt 134.5 kg
[~2021-04-27 07:41] MED LIST changes: +HYDR-3490 PO; -HYDR25TAB PO; -LISI-538 PO; +LISI20TA33 PO
[2021-04-27] MEDS ORDERED: HYDR-3490 (07:50)
[2021-04-27] MEDS ORDERED: CELE1CAP9 (07:50)
[2021-04-27] MEDS ORDERED: METF-838 (07:50)
[2021-04-27] MEDS ORDERED: FAMO40TA3 (07:50)
[2021-04-27] MEDS ORDERED: ZOLO100T PO (07:50)
[2021-04-27 08:51] LABS: BASO % 0.5 % (0.0-1.0); EOS # 0.1 10^3/uL (0.0-0.5); EOS % 1.8 % (0.0-3.0); HEMATOCRIT 43.5 % (42.0-52.0); HEMOGLOBIN 14.7 g/dl (13.5-17.5); LYMPH # 0.9 10^3/uL (1.5-5.0); LYMPH % 15.5 % (24.0-44.0); MEAN CORPUSCULAR HEMOGLOBIN 31.5 pg (27.0-33.0); MEAN CORPUSCULAR HGB CONC 33.8 g/dl (32.0-36.5); MEAN CORPUSCULAR VOLUME 93.1 fl (80.0-96.0); MONO # 0.4 10^3/uL (0.0-0.8); MONO % 7.7 % (2.0-8.0); NEUTROPHILS # 4.2 10^3/uL (1.5-8.5); NEUTROPHILS % 74.3 % (36.0-66.0); PLATELET COUNT, AUTOMATED 149 10^3/uL (150-450); RED BLOOD COUNT 4.67 10^6/uL (4.30-6.10); WHITE BLOOD COUNT 5.6 10^3/uL (4.0-10.0)
[2021-04-27 09:08] LABS: BLOOD UREA NITROGEN 16 MG/DL (7-18); CALCIUM LEVEL 8.9 MG/DL (8.5-10.1); CARBON DIOXIDE LEVEL 28 MEQ/L (21-32); CHLORIDE LEVEL 107 MEQ/L (98-107); CREATININE FOR GFR 0.75 MG/DL (0.70-1.30); GLOMERULAR FILTRATION RATE > 60.0 (>56); GLUCOSE, FASTING 204 MG/DL (70-100); POTASSIUM SERUM 3.7 MEQ/L (3.5-5.1); RHEUMATOID FACTOR QUANT < 10.0 IU/ML (<15.0); SODIUM LEVEL 140 MEQ/L (136-145)
[2021-04-27 09:16] LABS: ERYTHROCYTE SEDIMENTATION RATE 12 mm/hr (0-20)
--- NOTE | 2021-04-27 09:24 | REPVR ---
PROCEDURE INFORMATION: Exam: CT Lumbar Spine Without Contrast Exam date and time: 04/27/2021 8:45 AM Age: 56 years old Clinical indication: Low back pain; Additional info: Low back pain, bilateral radiculopathy TECHNIQUE: Imaging protocol: Computed tomography images of the lumbar spine without contrast. Radiation optimization: All CT scans at this facility use at least one of these dose optimization techniques: automated exposure control; mA and/or kV adjustment per patient size (includes targeted exams where dose is matched to clinical indication); or iterative reconstruction. COMPARISON: No relevant prior studies available. FINDINGS: Vertebrae: No acute fracture. Normal alignment. Discs/Spinal canal/Neural foramina: No significant disc protrusion. No severe spinal canal stenosis. No significant neural foraminal narrowing. Soft tissues: Unremarkable. IMPRESSION: No acute findings. Electronically signed by: Eleanor Kohler On 04/27/2021 09:24:27 AM
[2021-04-27] MEDS ORDERED: NAPR-837 PO (10:16)
[2021-04-27] MEDS ORDERED: NEUR300C PO (10:18)
[2021-04-27 10:25] VITALS: BP 122/73
== END 2021-04-27 10:30 | disposition home or self-care (01) ==
LOC: M ED 07:41
DX: G62.9 Polyneuropathy, unspecified (principal); M54.5 Low back pain; E11.9 Type 2 diabetes mellitus without complications; Z88.6 Allergy status to analgesic agent; Z79.899 Other long term (current) drug therapy

== ENCOUNTER 2021-10-08 04:59 | Emergency (ER) | payer OTHER ==
[~2021-10-08] VITALS: Ht 180.3 cm; Wt 139.4 kg
[~2021-10-08 04:59] MED LIST changes: +CELE1CAP9; +FAMO40TA3; +HYDR-3490; +METF-838; +NAPR-837 PO; +NEUR300C PO; +ZOLO100T PO
[2021-10-08 07:10] LABS: BASO # 0.1 10^3/uL (0.0-0.2); BASO % 0.7 % (0.0-1.0); EOS # 0.1 10^3/uL (0.0-0.5); EOS % 1.8 % (0.0-3.0); HEMATOCRIT 42.5 % (42.0-52.0); HEMOGLOBIN 14.9 g/dl (13.5-17.5); LYMPH # 1.1 10^3/uL (1.5-5.0); LYMPH % 16.2 % (24.0-44.0); MEAN CORPUSCULAR HEMOGLOBIN 31.6 pg (27.0-33.0); MEAN CORPUSCULAR HGB CONC 35.1 g/dl (32.0-36.5); MEAN CORPUSCULAR VOLUME 90.2 fl (80.0-96.0); MONO # 0.6 10^3/uL (0.0-0.8); NEUTROPHILS # 4.8 10^3/uL (1.5-8.5); NEUTROPHILS % 71.7 % (36.0-66.0); PLATELET COUNT, AUTOMATED 180 10^3/uL (150-450); RED BLOOD COUNT 4.71 10^6/uL (4.30-6.10); WHITE BLOOD COUNT 6.7 10^3/uL (4.0-10.0)
[2021-10-08 07:36] LABS: ALBUMIN 3.7 GM/DL (3.2-5.2); ALT/SGPT 54 U/L (12-78); BILIRUBIN,DIRECT 0.1 MG/DL (0.0-0.2); BILIRUBIN,TOTAL 0.4 MG/DL (0.2-1.0); BLOOD UREA NITROGEN 13 MG/DL (7-18); CALCIUM LEVEL 8.8 MG/DL (8.5-10.1); CARBON DIOXIDE LEVEL 26 MEQ/L (21-32); CHLORIDE LEVEL 103 MEQ/L (98-107); CREATININE FOR GFR 0.84 MG/DL (0.70-1.30); GLOMERULAR FILTRATION RATE > 60.0 (>56); GLUCOSE, FASTING 151 MG/DL (70-100); LIPASE 95 U/L (73-393); POTASSIUM SERUM 4.1 MEQ/L (3.5-5.1); SODIUM LEVEL 136 MEQ/L (136-145); TOTAL PROTEIN 7.1 GM/DL (6.4-8.2)
[2021-10-08] MEDS ORDERED: KETOROLAC 30 MG/ML 1ML VIAL IV ONE (11:00)
[2021-10-08 12:57] VITALS: BP 148/92
== END 2021-10-08 12:58 | disposition home or self-care (01) ==
LOC: M ED 04:59
DX: M54.31 Sciatica, right side (principal); M48.061 Spinal stenosis, lumbar region without neurogenic claudication; K80.20 Calculus of gallbladder without cholecystitis without obstruction; I10 Essential (primary) hypertension; E11.9 Type 2 diabetes mellitus without complications; E78.5 Hyperlipidemia, unspecified; Z79.84 Long term (current) use of oral hypoglycemic drugs; Z79.899 Other long term (current) drug therapy; Z88.6 Allergy status to analgesic agent
CPT/HCPCS: 72128; 72131; 74176; 76705; 80053; 81001; 82248; 83690; 85025; 96374; 99284; J1885

== ENCOUNTER 2021-11-04 16:04 | Emergency (ER) | payer OTHER ==
[~2021-11-04] VITALS: Ht 180.3 cm; Wt 134.7 kg
[2021-11-04] MEDS ORDERED: CELE1CAP9 PO (16:15)
[2021-11-04] MEDS ORDERED: hydrOXYzine 25 MG TAB PO ONE (16:40)
[2021-11-04 17:16] LABS: HEMATOCRIT 43.7 % (42.0-52.0); HEMOGLOBIN 15.5 g/dl (13.5-17.5); MEAN CORPUSCULAR HGB CONC 35.5 g/dl (32.0-36.5); MEAN CORPUSCULAR VOLUME 90.1 fl (80.0-96.0); PLATELET COUNT, AUTOMATED 202 10^3/uL (150-450); RED BLOOD COUNT 4.85 10^6/uL (4.30-6.10); WHITE BLOOD COUNT 5.2 10^3/uL (4.0-10.0)
[2021-11-04 17:46] LABS: ALBUMIN 3.9 GM/DL (3.2-5.2); ALT/SGPT 45 U/L (12-78); BILIRUBIN,DIRECT 0.2 MG/DL (0.0-0.2); BILIRUBIN,TOTAL 0.5 MG/DL (0.2-1.0); BLOOD UREA NITROGEN 14 MG/DL (7-18); CALCIUM LEVEL 9.2 MG/DL (8.5-10.1); CARBON DIOXIDE LEVEL 27 MEQ/L (21-32); CHLORIDE LEVEL 105 MEQ/L (98-107); CREATININE FOR GFR 1.03 MG/DL (0.70-1.30); GLOMERULAR FILTRATION RATE > 60.0 (>56); GLUCOSE, FASTING 153 MG/DL (70-100); POTASSIUM SERUM 3.7 MEQ/L (3.5-5.1); SODIUM LEVEL 141 MEQ/L (136-145); TOTAL PROTEIN 7.4 GM/DL (6.4-8.2)
[2021-11-04] MEDS ORDERED: SODIUM CHLORIDE NASAL 0.65% SPRAY BTL (OCEAN) ONE (18:10)
[2021-11-04] MEDS ORDERED: HYDR-3363 PO (18:13)
[2021-11-04 18:22] VITALS: BP 170/90
[2021-11-04] MEDS ORDERED: hydrOXYzine 25 MG TAB PO SCH (21:00)
== END 2021-11-04 18:25 | disposition home or self-care (01) ==
LOC: M ED 16:04
DX: F43.0 Acute stress reaction (principal); F41.9 Anxiety disorder, unspecified; E03.9 Hypothyroidism, unspecified; B02.0 Zoster encephalitis; I10 Essential (primary) hypertension; F32.89 Other specified depressive episodes; K21.9 Gastro-esophageal reflux disease without esophagitis; Z79.899 Other long term (current) drug therapy

== ENCOUNTER → 2022-04-11 | Outpatient (CLI) | payer MEDICARE ==
[~2022-04-11] MED LIST changes: +CELE1CAP9 PO; +HYDR-3363 PO
== END ==
LOC: M PLAIMG 07:07
PROVIDERS: ATTEND Family Medicine
DX: M51.36 Other intervertebral disc degeneration, lumbar region (principal); M25.78 Osteophyte, vertebrae

== ENCOUNTER → 2022-05-09 | Outpatient (CLI) | payer MEDICARE ==
[2022-05-09 09:07] LABS: HEMATOCRIT 46.6 % (42.0-52.0); HEMOGLOBIN 16.2 g/dl (13.5-17.5); MEAN CORPUSCULAR HEMOGLOBIN 31.3 pg (27.0-33.0); MEAN CORPUSCULAR HGB CONC 34.8 g/dl (32.0-36.5); MEAN CORPUSCULAR VOLUME 90.1 fl (80.0-96.0); PLATELET COUNT, AUTOMATED 191 10^3/uL (150-450); RED BLOOD COUNT 5.17 10^6/uL (4.30-6.10); WHITE BLOOD COUNT 5.9 10^3/uL (4.0-10.0)
[2022-05-09 09:34] LABS: ALBUMIN 4.3 GM/DL (3.2-5.2); ALT/SGPT 61 U/L (12-78); BILIRUBIN,TOTAL 0.7 MG/DL (0.2-1.0); BLOOD UREA NITROGEN 13 MG/DL (7-18); CALCIUM LEVEL 9.9 MG/DL (8.5-10.1); CARBON DIOXIDE LEVEL 31 MEQ/L (21-32); CHLORIDE LEVEL 102 MEQ/L (98-107); GLOMERULAR FILTRATION RATE > 60.0 (>56); GLUCOSE, FASTING 102 MG/DL (70-100); POTASSIUM SERUM 3.9 MEQ/L (3.5-5.1); SODIUM LEVEL 139 MEQ/L (136-145); TOTAL PROTEIN 7.6 GM/DL (6.4-8.2)
[2022-05-09 09:58] LABS: HEPATITIS B SURFACE ANTIGEN NEGATIVE (NEGATIVE)
[2022-05-09 10:26] LABS: HEPATITIS B CORE ANTIBODY IGM NEGATIVE (NEGATIVE); HEPATITIS C VIRUS ABY INDEX 0.1 INDEX (<0.8)
[2022-05-09 10:27] LABS: HIV 1&2 SCREEN CENTAUR NEGATIVE (NEGATIVE)
== END ==
LOC: M LAB 08:34
PROVIDERS: ATTEND Nurse Practitioner Family
DX: L40.9 Psoriasis, unspecified (principal)

== ENCOUNTER 2022-09-19 09:07 | Emergency (ER) | payer MEDICARE, OTHER ==
[~2022-09-19] VITALS: Ht 180.3 cm; Wt 121.3 kg
[2022-09-19] MEDS ORDERED: ACETAMINOPHEN 500 MG TAB PO ONE (13:05)
[2022-09-19] MEDS ORDERED: diazePAM 5MG TABLET PO ONE (13:05)
[2022-09-19] MEDS ORDERED: METH-1165 PO (14:28)
[2022-09-19] MEDS ORDERED: NEUR300C PO (14:28)
[2022-09-19 14:32] VITALS: BP 128/80
== END 2022-09-19 14:43 | disposition home or self-care (01) ==
LOC: M ED 09:07
DX: M54.50 Low back pain, unspecified (principal); I10 Essential (primary) hypertension; E78.5 Hyperlipidemia, unspecified; E11.9 Type 2 diabetes mellitus without complications; E03.9 Hypothyroidism, unspecified; F17.220 Nicotine dependence, chewing tobacco, uncomplicated; F10.10 Alcohol abuse, uncomplicated; Z79.811 Long term (current) use of aromatase inhibitors; Z79.899 Other long term (current) drug therapy

== ENCOUNTER → 2022-09-26 | Outpatient (REF) | payer OTHER ==
[~2022-09-26] MED LIST changes: +METH-1165 PO
[2022-09-26 18:03] LABS: BASO # 0.1 10^3/uL (0.0-0.2); BASO % 0.9 % (0.0-1.0); EOS # 0.1 10^3/uL (0.0-0.5); EOS % 2.5 % (0.0-3.0); HEMATOCRIT 47.8 % (42.0-52.0); HEMOGLOBIN 16.3 g/dl (13.5-17.5); LYMPH # 1.1 10^3/uL (1.5-5.0); LYMPH % 18.9 % (24.0-44.0); MEAN CORPUSCULAR HEMOGLOBIN 31.5 pg (27.0-33.0); MEAN CORPUSCULAR HGB CONC 34.1 g/dl (32.0-36.5); MEAN CORPUSCULAR VOLUME 92.5 fl (80.0-96.0); MONO # 0.6 10^3/uL (0.0-0.8); MONO % 10.6 % (2.0-8.0); NEUTROPHILS # 3.8 10^3/uL (1.5-8.5); NEUTROPHILS % 66.9 % (36.0-66.0); PLATELET COUNT, AUTOMATED 202 10^3/uL (150-450); RED BLOOD COUNT 5.17 10^6/uL (4.30-6.10); WHITE BLOOD COUNT 5.7 10^3/uL (4.0-10.0)
[2022-09-26 18:53] LABS: ERYTHROCYTE SEDIMENTATION RATE 9 mm/hr (0-20)
[2022-09-26 19:47] LABS: CHOLESTEROL LEVEL 149 MG/DL (<200); CHOLESTEROL RISK RATIO 3.68 (<5); FREE T4 1.22 NG/DL (0.89-1.76); HDL CHOLESTEROL 40.4 MG/DL (>40); HEMOGLOBIN A1c 5.3 % (4.0-6.0); LDL CHOLESTEROL 54.8 MG/DL (<100); NON-HDL-C 109 MG/DL; THYROID STIMULATING HORMONE 3.973 uIU/ML (0.55-4.78); TRIGLYCERIDES LEVEL 269 MG/DL (<150)
[2022-09-26 22:33] LABS: HEPATITIS C VIRUS ABY INDEX < 0.8 INDEX (<0.8); HIV 1&2 SCREEN CENTAUR NEGATIVE (NEGATIVE)
== END ==
LOC: M LAB REF 16:29
PROVIDERS: ATTEND Nurse Practitioner Family
DX: Z13.228 Encounter for screening for other metabolic disorders (principal); M79.10 Myalgia, unspecified site; Z11.3 Encounter for screening for infections with a predominantly sexual mode of transmission; Z79.899 Other long term (current) drug therapy; Z79.811 Long term (current) use of aromatase inhibitors

== ENCOUNTER → 2022-10-24 | Outpatient (CLI) | payer OTHER | LOC: M SOG 09:17 | PROVIDERS: ATTEND Orthopaedic Surgery | DX: M51.36 Other intervertebral disc degeneration, lumbar region (principal) ==

== ENCOUNTER → 2023-03-20 | Outpatient (CLI) | payer OTHER, MEDICAID | LOC: M PAIN 08:00 | PROVIDERS: ATTEND Nurse Practitioner Family | DX: M51.16 Intervertebral disc disorders with radiculopathy, lumbar region (principal); G89.29 Other chronic pain; Z87.891 Personal history of nicotine dependence; Z88.5 Allergy status to narcotic agent; Z79.82 Long term (current) use of aspirin; Z79.899 Other long term (current) drug therapy ==

== ENCOUNTER → 2023-03-26 | Outpatient (REF) | payer MEDICARE, MEDICAID ==
[2023-03-26 17:21] LABS: HDL CHOLESTEROL 35.7 MG/DL (>40); LDL CHOLESTEROL 52.9 MG/DL (<100); NON-HDL-C 107.3 MG/DL
== END ==
LOC: M LAB REF 16:27
PROVIDERS: ATTEND Nurse Practitioner Family
DX: E78.5 Hyperlipidemia, unspecified (principal)

== ENCOUNTER → 2023-06-05 | Outpatient (CLI) | payer MEDICARE, MEDICAID ==
[~2023-06-05] MED LIST changes: +ISOVUE-M 300 61% 15ML VIAL As Ordered ONE; +LIDOCAINE 1% SDV 30ML VIAL As Ordered ONE; +NORCO, ANEXSIA 5/325MG TABLET (HYDROcodone/ACETAMINOPHEN) As Ordered ONE; +diazePAM 5MG TABLET As Ordered ONE; +methylPREDNISolone SUSP 40MG/ML 1ML VIAL (DEPO MEDROL) As Ordered ONE
== END ==
LOC: M PAIN 09:00
PROVIDERS: ATTEND Anesthesiology
DX: M51.16 Intervertebral disc disorders with radiculopathy, lumbar region (principal); Z87.891 Personal history of nicotine dependence; Z88.5 Allergy status to narcotic agent
CPT/HCPCS: 62323; J1030; Q9967

== ENCOUNTER → 2023-06-25 | Outpatient (REF) | payer MEDICARE, MEDICAID ==
[~2023-06-25] MED LIST changes: -ISOVUE-M 300 61% 15ML VIAL As Ordered ONE; -LIDOCAINE 1% SDV 30ML VIAL As Ordered ONE; -NORCO, ANEXSIA 5/325MG TABLET (HYDROcodone/ACETAMINOPHEN) As Ordered ONE; -diazePAM 5MG TABLET As Ordered ONE; -methylPREDNISolone SUSP 40MG/ML 1ML VIAL (DEPO MEDROL) As Ordered ONE
[2023-06-25 19:23] LABS: CHOLESTEROL RISK RATIO 4.57 (<5); HDL CHOLESTEROL 35.4 MG/DL (>40); LDL CHOLESTEROL 66.4 MG/DL (<100); NON-HDL-C 126.6 MG/DL
== END ==
LOC: M LAB REF 16:35
PROVIDERS: ATTEND Nurse Practitioner Family
DX: E78.5 Hyperlipidemia, unspecified (principal)

== ENCOUNTER → 2023-07-10 | Outpatient (CLI) | payer MEDICARE, MEDICAID ==
[~2023-07-10] MED LIST changes: +CELE0.09; +CELE0.09 PO; -CELE1CAP9; -CELE1CAP9 PO
== END ==
LOC: M PAIN 09:15
PROVIDERS: ATTEND Nurse Practitioner Family
DX: M51.16 Intervertebral disc disorders with radiculopathy, lumbar region (principal); G89.29 Other chronic pain; G47.30 Sleep apnea, unspecified; Z87.891 Personal history of nicotine dependence; Z88.5 Allergy status to narcotic agent; Z79.82 Long term (current) use of aspirin; Z79.899 Other long term (current) drug therapy

== ENCOUNTER 2023-07-30 09:30 | Emergency (ER) | payer MEDICARE, MEDICAID ==
[~2023-07-30] VITALS: Ht 180.3 cm; Wt 122.7 kg
[2023-07-30] MEDS ORDERED: ATOR40TA75 (09:40)
[2023-07-30] MEDS ORDERED: FLUO1SO (09:40)
[2023-07-30] MEDS ORDERED: LEVO75TA4 (09:40)
[2023-07-30] MEDS ORDERED: DULO1CAP4 (09:40)
[2023-07-30] MEDS ORDERED: MELO15TA28 (09:40)
[2023-07-30] MEDS ORDERED: KETOROLAC 60MG 2ML VIAL IM ONE (12:15)
[2023-07-30 12:50] VITALS: BP 142/94; TEMP 97.2; O2SAT 100
== END 2023-07-30 12:50 | disposition home or self-care (01) ==
LOC: M ED 09:30
DX: M54.50 Low back pain, unspecified (principal); I10 Essential (primary) hypertension; E11.9 Type 2 diabetes mellitus without complications; E78.5 Hyperlipidemia, unspecified; K21.9 Gastro-esophageal reflux disease without esophagitis; F41.9 Anxiety disorder, unspecified; F32.A Depression, unspecified; E03.9 Hypothyroidism, unspecified; Z79.02 Long term (current) use of antithrombotics/antiplatelets; Z79.899 Other long term (current) drug therapy
CPT/HCPCS: 96372; 99283; J1885

== ENCOUNTER → 2023-08-13 | Outpatient (CLI) | payer MEDICARE, MEDICAID ==
[~2023-08-13] MED LIST changes: +DULO1CAP4; +FLUO1SO; +LEVO75TA4; +MELO15TA28
== END ==
LOC: M SOG 07:54
PROVIDERS: ATTEND Orthopaedic Surgery
DX: M47.27 Other spondylosis with radiculopathy, lumbosacral region (principal)

== ENCOUNTER → 2023-08-23 | Outpatient (CLI) | payer OTHER ==
[~2023-08-23] MED LIST changes: +ISOVUE-M 300 61% 15ML VIAL As Ordered ONE; +LIDOCAINE 1% SDV 30ML VIAL As Ordered ONE; +NORCO, ANEXSIA 5/325MG TABLET (HYDROcodone/ACETAMINOPHEN) As Ordered ONE; +dexAMETHasone 10MG/1ML VIAL PRES.FREE As Ordered ONE; +diazePAM 5MG TABLET As Ordered ONE
== END ==
LOC: M PAIN 10:15
PROVIDERS: ATTEND Anesthesiology
DX: M51.16 Intervertebral disc disorders with radiculopathy, lumbar region (principal); G89.29 Other chronic pain; Z87.891 Personal history of nicotine dependence; Z88.5 Allergy status to narcotic agent; Z79.82 Long term (current) use of aspirin; Z79.899 Other long term (current) drug therapy
CPT/HCPCS: 64483; J0665; J1100; Q9967

== ENCOUNTER → 2023-09-13 | Outpatient (CLI) | payer MEDICARE, OTHER ==
[~2023-09-13] MED LIST changes: -ISOVUE-M 300 61% 15ML VIAL As Ordered ONE; -LIDOCAINE 1% SDV 30ML VIAL As Ordered ONE; -NORCO, ANEXSIA 5/325MG TABLET (HYDROcodone/ACETAMINOPHEN) As Ordered ONE; -dexAMETHasone 10MG/1ML VIAL PRES.FREE As Ordered ONE; -diazePAM 5MG TABLET As Ordered ONE
== END ==
LOC: M SOG 12:34
PROVIDERS: ATTEND Orthopaedic Surgery
DX: M25.462 Effusion, left knee (principal); M17.0 Bilateral primary osteoarthritis of knee

== ENCOUNTER → 2023-09-13 | Outpatient (CLI) | payer MEDICARE ==
[2023-09-13 16:12] LABS: BASO % 0.7 % (0.0-1.0); EOS # 0.1 10^3/uL (0.0-0.5); EOS % 2.1 % (0.0-3.0); HEMOGLOBIN 16.3 g/dl (13.5-17.5); LYMPH # 1.3 10^3/uL (1.5-5.0); LYMPH % 21.8 % (24.0-44.0); MEAN CORPUSCULAR HGB CONC 34.7 g/dl (32.0-36.5); MEAN CORPUSCULAR VOLUME 89.4 fl (80.0-96.0); MONO # 0.6 10^3/uL (0.0-0.8); MONO % 9.7 % (2.0-8.0); NEUTROPHILS # 3.8 10^3/uL (1.5-8.5); NEUTROPHILS % 65.5 % (36.0-66.0); PLATELET COUNT, AUTOMATED 199 10^3/uL (150-450); RED BLOOD COUNT 5.26 10^6/uL (4.30-6.10); WHITE BLOOD COUNT 5.8 10^3/uL (4.0-10.0)
[2023-09-13 16:41] LABS: ALBUMIN 4.1 G/DL (3.2-5.2); ALKALINE PHOSPHATASE 72 U/L (46-116); ALT/SGPT 46 U/L (7.0-40); AST/SGOT 21 U/L (<34); BILIRUBIN,TOTAL 0.7 MG/DL (0.3-1.2); BLOOD UREA NITROGEN 13 MG/DL (9-23); CALCIUM LEVEL 9.5 MG/DL (8.5-10.1); CARBON DIOXIDE LEVEL 30 MMOL/L (20-31); CHLORIDE LEVEL 100 MMOL/L (98-107); CREATININE FOR GFR 0.74 MG/DL (0.70-1.30); GLOMERULAR FILTRATION RATE > 60.0 (>56); GLUCOSE, FASTING 92 MG/DL (60-100); POTASSIUM SERUM 3.7 MMOL/L (3.5-5.1); SODIUM LEVEL 139 MMOL/L (136-145); TOTAL PROTEIN 7.4 G/DL (5.7-8.2)
[2023-09-13 16:43] LABS: TOTAL 25(OH) VITAMIN D 21.6 NG/ML (20.0-100.0)
[2023-09-13 17:18] LABS: HEMOGLOBIN A1c 5.5 % (4.0-6.0)
== END ==
LOC: M LAB 14:22
PROVIDERS: ATTEND Orthopaedic Surgery
DX: M17.0 Bilateral primary osteoarthritis of knee (principal); M25.462 Effusion, left knee; Z79.899 Other long term (current) drug therapy

== ENCOUNTER → 2023-10-01 | Outpatient (REF) | payer MEDICARE, MEDICAID ==
[2023-10-01 18:56] LABS: BASO # 0.1 10^3/uL (0.0-0.2); BASO % 0.9 % (0.0-1.0); EOS # 0.1 10^3/uL (0.0-0.5); HEMOGLOBIN 15.9 g/dl (13.5-17.5); LYMPH # 1.2 10^3/uL (1.5-5.0); LYMPH % 22.5 % (24.0-44.0); MEAN CORPUSCULAR HEMOGLOBIN 31.4 pg (27.0-33.0); MEAN CORPUSCULAR HGB CONC 34.6 g/dl (32.0-36.5); MEAN CORPUSCULAR VOLUME 90.9 fl (80.0-96.0); MONO # 0.4 10^3/uL (0.0-0.8); MONO % 7.9 % (2.0-8.0); NEUTROPHILS # 3.6 10^3/uL (1.5-8.5); NEUTROPHILS % 66.3 % (36.0-66.0); PLATELET COUNT, AUTOMATED 198 10^3/uL (150-450); RED BLOOD COUNT 5.06 10^6/uL (4.30-6.10); WHITE BLOOD COUNT 5.4 10^3/uL (4.0-10.0)
[2023-10-01 19:15] LABS: HEMOGLOBIN A1c 5.6 % (4.0-6.0)
[2023-10-01 19:25] LABS: ALKALINE PHOSPHATASE 66 U/L (46-116); ALT/SGPT 48 U/L (7.0-40); AST/SGOT 22 U/L (<34); BILIRUBIN,TOTAL 0.7 MG/DL (0.3-1.2); BLOOD UREA NITROGEN 12 MG/DL (9-23); CALCIUM LEVEL 9.2 MG/DL (8.5-10.1); CARBON DIOXIDE LEVEL 31 MMOL/L (20-31); CHLORIDE LEVEL 103 MMOL/L (98-107); CHOLESTEROL LEVEL 179 MG/DL (<200); CHOLESTEROL RISK RATIO 4.67 (<5); CREATININE FOR GFR 0.68 MG/DL (0.70-1.30); GLOMERULAR FILTRATION RATE > 60.0 (>56); GLUCOSE, FASTING 93 MG/DL (60-100); HDL CHOLESTEROL 38.3 MG/DL (>40); LDL CHOLESTEROL 96.9 MG/DL (<100); MAGNESIUM LEVEL 1.7 MG/DL (1.8-2.4); NON-HDL-C 140.7 MG/DL; POTASSIUM SERUM 4.2 MMOL/L (3.5-5.1); SODIUM LEVEL 141 MMOL/L (136-145); THYROID STIMULATING HORMONE 2.738 uIU/ML (0.55-4.78); TOTAL PROTEIN 7.1 G/DL (5.7-8.2); TRIGLYCERIDES LEVEL 219 MG/DL (<150)
[2023-10-01 19:27] LABS: TOTAL 25(OH) VITAMIN D 25.8 NG/ML (20.0-100.0)
== END ==
LOC: M LAB REF 18:29
PROVIDERS: ATTEND Nurse Practitioner Family
DX: Z13.228 Encounter for screening for other metabolic disorders (principal); Z79.1 Long term (current) use of non-steroidal anti-inflammatories (NSAID); Z79.899 Other long term (current) drug therapy

== ENCOUNTER → 2023-11-07 | Outpatient (CLI) | payer MEDICARE ==
[~2023-11-07] MED LIST changes: +ACET-683 PO; +APPLTAB2 PO; +ARTH650T17 PO; +ATOR40TA75 PO; +BAYE81TA10 PO; +CIDA500T2 PO; +CINN500C2 PO; +DULO1CAP6 PO; -HYDR-3490; -LEVO75TA4; +LEVO75TA4 PO; -MELO15TA28; +MELO15TA28 PO; +METF500T13 PO; +OMEG10002 PO; +RED1TAB. PO; +TURM500C PO; +VITA200032 PO
== END ==
LOC: M RAD 08:51
PROVIDERS: ATTEND Orthopaedic Surgery
DX: M25.561 Pain in right knee (principal)

== ENCOUNTER 2023-11-08 09:51 | Outpatient (RCR) | payer MEDICARE, MEDICAID ==
[~2023-11-08 09:51] MED LIST changes: -FLUO1SO; +FLUO1SO TOP
== END 2023-11-11 ==
LOC: M PT 09:51
PROVIDERS: ATTEND Physician Assistant
DX: M25.561 Pain in right knee (principal)

== ENCOUNTER 2023-11-13 06:02 | Observation (INO) | payer MEDICARE ==
[~2023-11-13] VITALS: Ht 180.3 cm; Wt 123.8 kg
[2023-11-13] VITALS (8 sets, daily range): BP systolic 99–120; BP diastolic 65–81; TEMP 97–97.7; O2SAT 91–94
[~2023-11-13 06:02] MED LIST changes: +ROPIVA 100MG/KETOR 15MG/EPINEPHRINE 0.3MG IN NS 50ML SYRINGE PA ONE; +TRANEXAMIC ACID 100 MG/ML 10ML VIAL IV ONE
[2023-11-13] MEDS ORDERED: INSULIN LISPRO (NovoLOG) PER UNIT SC PRN ×2 (06:55→11:20)
[2023-11-13] MEDS ORDERED: GLUCAGON INJ 1MG VIAL SC PRN ×3 (06:55→14:10)
[2023-11-13] MEDS ORDERED: DEXTROSE 50% 50ML SYRINGE IV PRN ×3 (06:55→14:10)
[2023-11-13] MEDS ORDERED: GLUCOSE 4GM CHEW TABLET PO PRN ×3 (06:55→14:10)
[2023-11-13] MEDS ORDERED: LR 1,000 ML IV SCH ×3 (06:55→10:35)
[2023-11-13] MEDS ORDERED: ceFAZolin SOD 1 GM in D5W MINI-BAG PLUS 50 ML IV ONE (07:35)
[2023-11-13] MEDS ORDERED: ceFAZolin SOD 2 GM in IV 1 EA IV ONE (07:35)
[2023-11-13] MEDS ORDERED: ACETAMINOPHEN 1000MG 100ML IV BAG As Ordered ONE (08:03)
[2023-11-13] MEDS ORDERED: fentaNYL 100 MCG/2 ML INJECTION As Ordered ONE (08:03)
[2023-11-13] MEDS ORDERED: propofoL 200 MG/20 ML VIAL As Ordered ONE ×2 (08:03→09:03)
[2023-11-13] MEDS ORDERED: ONDANSETRON 4MG 2ML VIAL As Ordered ONE ×2 (08:03→09:22)
[2023-11-13] MEDS ORDERED: LIDOCAINE 2% 100MG/5ML SDV (FOR ANES.) As Ordered ONE (08:03)
[2023-11-13] MEDS ORDERED: ROCURONIUM BROMIDE 50MG/5ML VIAL As Ordered ONE ×2 (08:03→12:23)
[2023-11-13] MEDS ORDERED: SUGAMMADEX SODIUM 500 MG/5 ML VIAL (BRIDION) As Ordered ONE (08:03)
[2023-11-13] MEDS ORDERED: MIDAZOLAM INJ 2MG/2ML VIAL As Ordered ONE (08:03)
[2023-11-13] MEDS ORDERED: HYDROmorphone HCL 2MG/ML 1ML VIAL As Ordered ONE (08:04)
[2023-11-13] MEDS ORDERED: ePHEDrine SULFATE 25 MG/5 ML(5MG/ML) SYRINGE As Ordered ONE (08:24)
[2023-11-13] MEDS ORDERED: GLYCOPYRROLATE INJ 0.2 MG/ML 2 ML VIAL As Ordered ONE (08:24)
[2023-11-13] MEDS ORDERED: METOCLOPRAMIDE INJ 10MG/2ML VIAL IV PRN (10:15)
[2023-11-13] MEDS ORDERED: ONDANSETRON 4MG 2ML VIAL IV PRN ×2 (10:15→10:35)
[2023-11-13] MEDS ORDERED: oxyCODONE 5MG TAB PO PRN (10:35)
[2023-11-13] MEDS ORDERED: SENNA 8.6 MG TAB (SENOKOT) PO PRN (10:35)
[2023-11-13] MEDS: fentaNYL 100 MCG/2 ML INJECTION IV PRN ×4 (11:13→11:29)
[2023-11-13] MEDS: oxyCODONE 5MG TAB PO PRN ×3 (11:31→21:50)
[2023-11-13] MEDS: HYDROMORPHONE HCL 0.5 MG/ 0.5 ML SYRINGE IV PRN ×3 (11:32→13:14)
[2023-11-13] MEDS ORDERED: MED REC IN PROGRESS XX SCH ×2 (15:55→19:20)
[2023-11-13] MEDS: INSULIN LISPRO (NovoLOG) PER UNIT SC SCH (16:59)
[2023-11-13] MEDS: ceFAZolin SOD 2 GM in IV 1 EA IV SCH (17:00)
[2023-11-13] MEDS: ACETAMINOPHEN TAB 650MG DOSE (2X325MG) PO SCH (17:00)
[2023-11-13] MEDS ORDERED: CLIN1GEL22 TOP (19:16)
[2023-11-13] MEDS ORDERED: HOME MED LIST COMPLETE! XX SCH (19:30)
[2023-11-13] MEDS ORDERED: INSULIN LISPRO (NovoLOG) PER UNIT SC SCH (21:00)
[2023-11-13] MEDS: SODIUM CHLORIDE NASAL 0.65% SPRAY BTL (OCEAN) SCH (21:48)
[2023-11-13] MEDS: DOCUSATE SODIUM 100MG CAPSULE PO SCH (21:50)
[2023-11-13] MEDS: ASPIRIN 81MG ENTERIC TABLET PO SCH (21:50)
[2023-11-14 00:30] VITALS: BP 125/74; TEMP 97.6; O2SAT 94
[2023-11-14] MEDS: ACETAMINOPHEN TAB 650MG DOSE (2X325MG) PO SCH ×2 (00:31→05:58)
[2023-11-14] MEDS: ceFAZolin SOD 2 GM in IV 1 EA IV SCH (00:33)
[2023-11-14] MEDS ORDERED: MAALOX 30 ML SUSP *UDC PO PRN (02:25)
[2023-11-14 04:30] VITALS: BP 127/73; TEMP 97; O2SAT 94
[2023-11-14] MEDS ORDERED: LEVOTHYROXINE 75MCG TABLET (0.075MG) PO SCH (06:00)
[2023-11-14 06:24] LABS: HEMATOCRIT 35.5 % (42.0-52.0); HEMOGLOBIN 12.2 g/dl (13.5-17.5); MEAN CORPUSCULAR HEMOGLOBIN 31.4 pg (27.0-33.0); MEAN CORPUSCULAR HGB CONC 34.4 g/dl (32.0-36.5); MEAN CORPUSCULAR VOLUME 91.5 fl (80.0-96.0); PLATELET COUNT, AUTOMATED 187 10^3/uL (150-450); RED BLOOD COUNT 3.88 10^6/uL (4.30-6.10); WHITE BLOOD COUNT 9.3 10^3/uL (4.0-10.0)
[2023-11-14 06:37] LABS: INR 1.18; PROTHROMBIN TIME 14.6 SECONDS (12.5-14.5)
[2023-11-14 06:56] LABS: ALBUMIN 3.3 G/DL (3.2-5.2); ALKALINE PHOSPHATASE 51 U/L (46-116); ALT/SGPT 31 U/L (7.0-40); AST/SGOT 12 U/L (<34); BILIRUBIN,TOTAL 0.6 MG/DL (0.3-1.2); BLOOD UREA NITROGEN 16 MG/DL (9-23); CALCIUM LEVEL 8.8 MG/DL (8.5-10.1); CARBON DIOXIDE LEVEL 30 MMOL/L (20-31); CHLORIDE LEVEL 101 MMOL/L (98-107); CREATININE FOR GFR 0.82 MG/DL (0.70-1.30); GLOMERULAR FILTRATION RATE > 60.0 (>56); GLUCOSE, FASTING 125 MG/DL (60-100); PHOSPHORUS LEVEL 4.2 MG/DL (2.5-4.9); POTASSIUM SERUM 4.1 MMOL/L (3.5-5.1); SODIUM LEVEL 137 MMOL/L (136-145); TOTAL PROTEIN 5.8 G/DL (5.7-8.2)
[2023-11-14 08:33] VITALS: BP 131/81; TEMP 98.6; O2SAT 100
[2023-11-14] MEDS: DOCUSATE SODIUM 100MG CAPSULE PO SCH (08:37)
[2023-11-14] MEDS: INSULIN LISPRO (NovoLOG) PER UNIT SC SCH (08:37)
[2023-11-14] MEDS: oxyCODONE 5MG TAB PO PRN (08:38)
[2023-11-14] MEDS: ASPIRIN 81MG ENTERIC TABLET PO SCH (08:38)
[2023-11-14] MEDS ORDERED: ATORVASTATIN 20 MG TAB PO SCH (09:00)
[2023-11-14] MEDS ORDERED: MELOXICAM (MOBIC) 7.5 MG TAB PO SCH (09:00)
[2023-11-14] MEDS ORDERED: FERROUS SULFATE 325MG TAB PO SCH (09:00)
[2023-11-14] MEDS ORDERED: PANTOPRAZOLE 40MG TAB (PROTONIX) PO SCH (09:00)
[2023-11-14] MEDS ORDERED: ASCORBIC ACID 500 MG TAB PO SCH (09:00)
[2023-11-14] MEDS ORDERED: DULoxetine 30MG CAPSULE (CYMBALTA) PO SCH (09:00)
[2023-11-14] MEDS ORDERED: SERTRALINE 100 MG TAB PO SCH (09:00)
[2023-11-14] MEDS: SODIUM CHLORIDE NASAL 0.65% SPRAY BTL (OCEAN) SCH (09:00)
[2023-11-14] MEDS ORDERED: ASPI81TAEC PO (10:15)
[2023-11-14] MEDS ORDERED: OXYC-517 PO (10:15)
[2023-11-14] MEDS ORDERED: CEFA500C2 PO (10:15)
== END 2023-11-14 12:40 | disposition home or self-care (01) ==
LOC: M SDC 06:02 → M RR INP 06:03 → M MS5PR 15:15 → ENRESERV 15:16
PROVIDERS: ADMIT Orthopaedic Surgery; ATTEND Orthopaedic Surgery
DX: M17.11 Unilateral primary osteoarthritis, right knee (principal); R12 Heartburn; G47.30 Sleep apnea, unspecified; I10 Essential (primary) hypertension; E03.9 Hypothyroidism, unspecified; E78.00 Pure hypercholesterolemia, unspecified; F41.9 Anxiety disorder, unspecified; F32.A Depression, unspecified; M54.9 Dorsalgia, unspecified; G89.29 Other chronic pain; Z87.891 Personal history of nicotine dependence; Z79.899 Other long term (current) drug therapy; Z79.82 Long term (current) use of aspirin; Z79.890 Hormone replacement therapy; Z79.84 Long term (current) use of oral hypoglycemic drugs
CPT/HCPCS: 27447; 36415; 73560; 80053; 80069; 85027; 85610; 87635; 96374; 96376; 97110; 97161; 97530; C1776; G0378; J0131; J0690; J1100; J1170; J1815; J2250; J2405; J3010; S2900

== ENCOUNTER → 2023-11-26 | Outpatient (CLI) | payer MEDICARE ==
[~2023-11-26] MED LIST changes: +ASPI81TAEC PO; +CEFA500C2 PO; +CLIN1GEL22 TOP; +OXYC-517 PO; -ROPIVA 100MG/KETOR 15MG/EPINEPHRINE 0.3MG IN NS 50ML SYRINGE PA ONE; -TRANEXAMIC ACID 100 MG/ML 10ML VIAL IV ONE
== END ==
LOC: M SOG 08:15
PROVIDERS: ATTEND Orthopaedic Surgery
DX: Z53.9 Procedure and treatment not carried out, unspecified reason (principal)

== ENCOUNTER → 2023-11-27 | Outpatient (CLI) | payer MEDICARE | LOC: M SOG 08:02 | PROVIDERS: ATTEND Orthopaedic Surgery | DX: Z47.1 Aftercare following joint replacement surgery (principal); Z96.651 Presence of right artificial knee joint ==

== ENCOUNTER → 2023-12-06 | Outpatient (CLI) | payer OTHER | LOC: M PAIN 14:45 | PROVIDERS: ATTEND Nurse Practitioner Family | DX: M51.16 Intervertebral disc disorders with radiculopathy, lumbar region (principal); G89.29 Other chronic pain; L40.9 Psoriasis, unspecified; E66.9 Obesity, unspecified; E78.5 Hyperlipidemia, unspecified; G47.30 Sleep apnea, unspecified; Z87.891 Personal history of nicotine dependence; Z79.82 Long term (current) use of aspirin; Z79.890 Hormone replacement therapy; Z79.1 Long term (current) use of non-steroidal anti-inflammatories (NSAID); Z79.899 Other long term (current) drug therapy; Z88.5 Allergy status to narcotic agent; Z68.37 Body mass index [BMI] 37.0-37.9, adult ==

== ENCOUNTER → 2023-12-26 | Outpatient (REF) | payer OTHER ==
[2023-12-26 12:02] LABS: INR 0.98; PROTHROMBIN TIME 12.7 SECONDS (12.5-14.5)
[2023-12-26 12:32] LABS: BASO % 0.4 % (0.0-1.0); EOS % 0.4 % (0.0-3.0); HEMOGLOBIN 16.4 g/dl (13.5-17.5); LYMPH # 0.9 10^3/uL (1.5-5.0); LYMPH % 9.3 % (24.0-44.0); MEAN CORPUSCULAR HEMOGLOBIN 30.9 pg (27.0-33.0); MEAN CORPUSCULAR HGB CONC 32.8 g/dl (32.0-36.5); MEAN CORPUSCULAR VOLUME 94.2 fl (80.0-96.0); MONO # 0.4 10^3/uL (0.0-0.8); MONO % 4.3 % (2.0-8.0); NEUTROPHILS # 7.8 10^3/uL (1.5-8.5); NEUTROPHILS % 84.9 % (36.0-66.0); PLATELET COUNT, AUTOMATED 242 10^3/uL (150-450); RED BLOOD COUNT 5.31 10^6/uL (4.30-6.10); WHITE BLOOD COUNT 9.1 10^3/uL (4.0-10.0)
[2023-12-26 13:02] LABS: ALBUMIN 4.4 G/DL (3.2-5.2); ALKALINE PHOSPHATASE 88 U/L (46-116); ALT/SGPT 38 U/L (7.0-40); AST/SGOT 10 U/L (<34); BILIRUBIN,TOTAL 0.5 MG/DL (0.3-1.2); BLOOD UREA NITROGEN 19 MG/DL (9-23); CALCIUM LEVEL 9.5 MG/DL (8.5-10.1); CARBON DIOXIDE LEVEL 31 MMOL/L (20-31); CHLORIDE LEVEL 99 MMOL/L (98-107); CREATININE FOR GFR 0.75 MG/DL (0.70-1.30); GLOMERULAR FILTRATION RATE > 60.0 (>56); GLUCOSE, FASTING 172 MG/DL (60-100); POTASSIUM SERUM 4.1 MMOL/L (3.5-5.1); SODIUM LEVEL 136 MMOL/L (136-145); TOTAL PROTEIN 7.2 G/DL (5.7-8.2)
[2023-12-26 13:25] LABS: HEMOGLOBIN A1c 5.4 % (4.0-6.0)
== END ==
LOC: M LABWUC 11:21
PROVIDERS: ATTEND Orthopaedic Surgery
DX: M17.12 Unilateral primary osteoarthritis, left knee (principal)

== ENCOUNTER → 2024-01-25 | Outpatient (CLI) | payer MEDICARE, MEDICAID | LOC: M PLAIMG 08:58 | PROVIDERS: ATTEND Orthopaedic Surgery | DX: M17.12 Unilateral primary osteoarthritis, left knee (principal); M71.22 Synovial cyst of popliteal space [Baker], left knee ==

== ENCOUNTER 2024-02-04 14:15 | Outpatient (RCR) | payer MEDICARE, MEDICAID ==
[2024-02-05] MEDS ORDERED: KETO2SHA8 TOP (07:29)
[2024-02-05] MEDS ORDERED: ASPI81TA26 PO (07:29)
[2024-02-05] MEDS ORDERED: KETO2CR TOP (07:29)
[2024-02-06] MEDS ORDERED: ASPI81TA26 PO (09:39)
[2024-02-06] MEDS ORDERED: OXYC-517 PO (09:39)
== END 2024-02-10 ==
LOC: M PT 14:15
PROVIDERS: ATTEND Orthopaedic Surgery
DX: M17.12 Unilateral primary osteoarthritis, left knee (principal)

== ENCOUNTER 2024-02-05 05:57 | Observation (INO) | payer MEDICARE, MEDICAID ==
[~2024-02-05] VITALS: Ht 180.3 cm; Wt 123.4 kg
[2024-02-05] VITALS (7 sets, daily range): BP systolic 110–118; BP diastolic 69–88; TEMP 97–97.7; O2SAT 90–94
[2024-02-05] MEDS ORDERED: TRANEXAMIC ACID 100 MG/ML 10ML VIAL IV ONE (06:00)
[2024-02-05] MEDS ORDERED: ROCURONIUM BROMIDE 50MG/5ML VIAL As Ordered ONE (07:13)
[2024-02-05] MEDS ORDERED: propofoL 200 MG/20 ML VIAL As Ordered ONE (07:14)
[2024-02-05] MEDS ORDERED: fentaNYL 100 MCG/2 ML INJECTION As Ordered ONE (07:14)
[2024-02-05] MEDS ORDERED: MIDAZOLAM INJ 2MG/2ML VIAL As Ordered ONE (07:14)
[2024-02-05] MEDS ORDERED: LIDOCAINE 2% 100MG/5ML SDV (FOR ANES.) As Ordered ONE (07:14)
[2024-02-05] MEDS: LR 1,000 ML IV SCH ×3 (07:22→14:02)
[2024-02-05] MEDS ORDERED: KETO2SHA8 TOP (07:29)
[2024-02-05] MEDS ORDERED: KETO2CR TOP (07:29)
[2024-02-05] MEDS ORDERED: ASPI81TA26 PO (07:29)
[2024-02-05] MEDS ORDERED: HOME MED LIST COMPLETE! XX SCH (07:30)
[2024-02-05] MEDS: ceFAZolin SOD 2 GM in IV 1 EA IV ONE (07:45)
[2024-02-05] MEDS: ceFAZolin SOD 1 GM in D5W MINI-BAG PLUS 50 ML IV ONE (07:45)
[2024-02-05] MEDS: TRANEXAMIC ACID 100 MG/ML 10ML VIAL As Ordered ONE (07:52)
[2024-02-05] MEDS ORDERED: SUGAMMADEX SODIUM 500 MG/5 ML VIAL (BRIDION) As Ordered ONE (07:59)
[2024-02-05] MEDS ORDERED: ONDANSETRON 4MG 2ML VIAL As Ordered ONE (07:59)
[2024-02-05] MEDS ORDERED: ACETAMINOPHEN 1000MG 100ML IV BAG As Ordered ONE (08:11)
[2024-02-05] MEDS ORDERED: HYDROmorphone HCL 2MG/ML 1ML VIAL As Ordered ONE (08:58)
[2024-02-05] MEDS ORDERED: ePHEDrine SULFATE 25 MG/5 ML(5MG/ML) SYRINGE As Ordered ONE (09:21)
[2024-02-05] MEDS: ROPIVA 100MG/KETOR 15MG/EPINEPHRINE 0.3MG IN NS 50ML SYRINGE PA ONE (09:40)
[2024-02-05] MEDS ORDERED: ONDANSETRON 4MG 2ML VIAL IV PRN ×2 (10:00→10:30)
[2024-02-05] MEDS ORDERED: SENNA 8.6 MG TAB (SENOKOT) PO PRN (10:00)
[2024-02-05] MEDS: fentaNYL 100 MCG/2 ML INJECTION IV PRN (10:57)
[2024-02-05] MEDS: oxyCODONE 5MG TAB PO PRN ×2 (11:03→17:27)
[2024-02-05] MEDS: HYDROMORPHONE HCL 0.5 MG/ 0.5 ML SYRINGE IV PRN (11:20)
[2024-02-05] MEDS ORDERED: oxyCODONE 5MG TAB PO PRN (12:31)
[2024-02-05] MEDS: ACETAMINOPHEN TAB 650MG DOSE (2X325MG) PO SCH (14:02)
[2024-02-05] MEDS: diphenhydrAMINE 25MG CAP PO PRN (15:13)
[2024-02-05] MEDS: ceFAZolin SOD 2 GM in IV 1 EA IV SCH (17:28)
[2024-02-05] MEDS: NAPROXEN 250 MG TAB PO SCH (20:36)
[2024-02-05] MEDS: DOCUSATE SODIUM 100MG CAPSULE PO SCH (20:36)
[2024-02-05] MEDS: ASPIRIN 81MG ENTERIC TABLET PO SCH (20:37)
[2024-02-06 02:00] VITALS: BP 132/71; TEMP 97.7; O2SAT 94
[2024-02-06] MEDS: LEVOTHYROXINE 75MCG TABLET (0.075MG) PO SCH (05:10)
[2024-02-06 06:00] VITALS: BP 132/86; TEMP 98.1; O2SAT 95
[2024-02-06 07:06] LABS: HEMATOCRIT 38.6 % (42.0-52.0); HEMOGLOBIN 13.2 g/dl (13.5-17.5); MEAN CORPUSCULAR HGB CONC 34.2 g/dl (32.0-36.5); MEAN CORPUSCULAR VOLUME 90.6 fl (80.0-96.0); PLATELET COUNT, AUTOMATED 173 10^3/uL (150-450); RED BLOOD COUNT 4.26 10^6/uL (4.30-6.10)
[2024-02-06 07:46] LABS: ALBUMIN 3.4 G/DL (3.2-5.2); ALKALINE PHOSPHATASE 55 U/L (46-116); ALT/SGPT 60 U/L (7.0-40); AST/SGOT 20 U/L (<34); BILIRUBIN,TOTAL 0.5 MG/DL (0.3-1.2); BLOOD UREA NITROGEN 17 MG/DL (9-23); CALCIUM LEVEL 8.9 MG/DL (8.5-10.1); CARBON DIOXIDE LEVEL 31 MMOL/L (20-31); CHLORIDE LEVEL 101 MMOL/L (98-107); CREATININE FOR GFR 0.71 MG/DL (0.70-1.30); GLOMERULAR FILTRATION RATE > 60.0 (>56); GLUCOSE, FASTING 139 MG/DL (60-100); PHOSPHORUS LEVEL 4.2 MG/DL (2.5-4.9); POTASSIUM SERUM 4.1 MMOL/L (3.5-5.1); SODIUM LEVEL 136 MMOL/L (136-145)
[2024-02-06] MEDS: SERTRALINE 100 MG TAB PO SCH (08:51)
[2024-02-06] MEDS: DULoxetine 30MG CAPSULE (CYMBALTA) PO SCH (08:51)
[2024-02-06] MEDS: FERROUS SULFATE 325MG TAB PO SCH (08:51)
[2024-02-06] MEDS: ASCORBIC ACID 500 MG TAB PO SCH (08:51)
[2024-02-06] MEDS: ATORVASTATIN 20 MG TAB PO SCH (08:51)
[2024-02-06 08:52] VITALS: BP 133/95
[2024-02-06] MEDS ORDERED: ASPI81TA26 PO (09:39)
[2024-02-06] MEDS ORDERED: OXYC-517 PO (09:39)
== END 2024-02-06 10:50 | disposition home or self-care (01) ==
LOC: M SDC 05:57 → M RR INP 05:58 → M MS5PR 12:10
PROVIDERS: ADMIT Orthopaedic Surgery; ATTEND Orthopaedic Surgery
DX: M17.11 Unilateral primary osteoarthritis, right knee (principal); I10 Essential (primary) hypertension; M54.30 Sciatica, unspecified side; M54.50 Low back pain, unspecified; E03.9 Hypothyroidism, unspecified; E55.9 Vitamin D deficiency, unspecified; E78.5 Hyperlipidemia, unspecified; E66.9 Obesity, unspecified; G47.33 Obstructive sleep apnea (adult) (pediatric); K44.9 Diaphragmatic hernia without obstruction or gangrene; L40.9 Psoriasis, unspecified; F17.200 Nicotine dependence, unspecified, uncomplicated; Z79.899 Other long term (current) drug therapy
CPT/HCPCS: 27447; 36415; 73560; 80053; 80069; 85027; 87635; 88300; 96365; 96366; 97110; 97116; 97161; 97165; 97535; C1776; G0378; J0131; J0690; J1100; J1170; J2250; J2405; J3010; S2900

== ENCOUNTER → 2024-02-20 | Outpatient (CLI) | payer MEDICARE, MEDICAID ==
[~2024-02-20] MED LIST changes: +ASPI81TA26 PO; +KETO2CR TOP; +KETO2SHA8 TOP
== END ==
LOC: M SOG 08:06
PROVIDERS: ATTEND Orthopaedic Surgery
DX: Z47.1 Aftercare following joint replacement surgery (principal); Z96.652 Presence of left artificial knee joint

== ENCOUNTER 2024-03-03 09:43 | Outpatient (RCR) | payer MEDICARE, MEDICAID ==
[2024-03-04] MEDS ORDERED: ECOT81TA5 PO (22:41)
[2024-03-04] MEDS ORDERED: COSE1INJ4 SC (23:00)
[2024-03-07] MEDS ORDERED: AMOX875T2 PO (09:49)
[2024-03-07] MEDS ORDERED: BACI1CAP PO (09:49)
== END 2024-03-11 ==
LOC: M PT 09:43
PROVIDERS: ATTEND Orthopaedic Surgery
DX: Z47.89 Encounter for other orthopedic aftercare (principal); Z96.652 Presence of left artificial knee joint

== ENCOUNTER 2024-03-04 19:01 | Inpatient (IN) | payer MEDICARE, MEDICAID ==
[~2024-03-04] VITALS: Ht 180.3 cm; Wt 132.4 kg
[2024-03-04 20:25] LABS: BASO # 0.1 10^3/uL (0.0-0.2); BASO % 0.6 % (0.0-1.0); EOS % 0.2 % (0.0-3.0); HEMATOCRIT 44.5 % (42.0-52.0); HEMOGLOBIN 15.7 g/dl (13.5-17.5); LYMPH # 0.3 10^3/uL (1.5-5.0); MEAN CORPUSCULAR HGB CONC 35.3 g/dl (32.0-36.5); MEAN CORPUSCULAR VOLUME 87.9 fl (80.0-96.0); MONO # 0.4 10^3/uL (0.0-0.8); MONO % 4.4 % (2.0-8.0); NEUTROPHILS # 8.3 10^3/uL (1.5-8.5); NEUTROPHILS % 91.7 % (36.0-66.0); PLATELET COUNT, AUTOMATED 187 10^3/uL (150-450); RED BLOOD COUNT 5.06 10^6/uL (4.30-6.10)
[2024-03-04 20:42] LABS: CK-MB VALUE MASS < 1.0 NG/ML (<3.6)
[2024-03-04 20:44] LABS: CPK CREATINE PHOSPHOKINASE 73 U/L (46-171); MB/CK RELATIVE INDEX 1.36 (< OR =4)
[2024-03-04] MEDS: NS 1,000 ML IV ONE (20:44)
[2024-03-04] MEDS: ACETAMINOPHEN TAB 650MG DOSE (2X325MG) PO ONE (20:44)
[2024-03-04 20:45] LABS: ALBUMIN 4.4 G/DL (3.2-5.2); ALKALINE PHOSPHATASE 93 U/L (46-116); ALT/SGPT 48 U/L (7.0-40); AST/SGOT 22 U/L (<34); BILIRUBIN,DIRECT 0.3 MG/DL (<0.4); BLOOD UREA NITROGEN 12 MG/DL (9-23); CARBON DIOXIDE LEVEL 26 MMOL/L (20-31); CHLORIDE LEVEL 101 MMOL/L (98-107); CREATININE FOR GFR 0.86 MG/DL (0.70-1.30); FREE T4 0.92 NG/DL (0.89-1.76); GLOMERULAR FILTRATION RATE > 60.0 (>56); GLUCOSE, FASTING 138 MG/DL (60-100); POTASSIUM SERUM 3.6 MMOL/L (3.5-5.1); SODIUM LEVEL 137 MMOL/L (136-145); TOTAL PROTEIN 7.3 G/DL (5.7-8.2)
[2024-03-04 20:46] LABS: THYROID STIMULATING HORMONE 2.135 uIU/ML (0.55-4.78)
[2024-03-04] MEDS: cefTRIAXone SOD 2 GM in D5W MINI-BAG PLUS 50 ML IV ONE (22:14)
[2024-03-04] MEDS ORDERED: ECOT81TA5 PO (22:41)
[2024-03-04] MEDS ORDERED: COSE1INJ4 SC (23:00)
[2024-03-04] MEDS ORDERED: HOME MED LIST COMPLETE! XX SCH (23:00)
[2024-03-04] MEDS: NS 1,000 ML IV SCH (23:25)
[2024-03-04] MEDS ORDERED: DEXTROSE 50% 50ML SYRINGE IV PRN (23:45)
[2024-03-04] MEDS ORDERED: GLUCAGON INJ 1MG VIAL SC PRN (23:45)
[2024-03-04] MEDS ORDERED: MAALOX 30 ML SUSP *UDC PO PRN (23:45)
[2024-03-04] MEDS ORDERED: MOM 30ML SUSPENSION UDC PO PRN (23:45)
[2024-03-04] MEDS ORDERED: GLUCOSE 4GM CHEW TABLET PO PRN (23:45)
[2024-03-05] VITALS (8 sets, daily range): BP systolic 130–142; BP diastolic 70–87; TEMP 99.2–102.6; O2SAT 94–99
[2024-03-05 00:16] LABS: HEMOGLOBIN A1c 5.8 % (4.0-6.0)
[2024-03-05 00:20] LABS: PROCALCITONIN 0.22 ng/ml
[2024-03-05] MEDS: KETOROLAC 30 MG/ML 1ML VIAL IV ONE (00:42)
[2024-03-05] MEDS: ACETAMINOPHEN *IV* 1,000 MG in IV 1 EA IV ONE (00:43)
[2024-03-05] MEDS: LIDOCAINE 5% (LIDODERM) PATCH TD SCH (00:44)
[2024-03-05] MEDS: NS 1,000 ML IV SCH (00:45)
[2024-03-05] MEDS: LEVOTHYROXINE 75MCG TABLET (0.075MG) PO SCH (00:46)
[2024-03-05] MEDS: VANCOMYCIN HCL 1,000 MG, VIAL MATE ADAPTER 1 EACH in D5W 250 ML IV ONE ×2 (00:46→02:33)
[2024-03-05 01:13] LABS: MAGNESIUM LEVEL 1.4 MG/DL (1.8-2.4)
[2024-03-05] MEDS ORDERED: PIPERACILLIN/TAZOBACTAM SOD 4.5 GM in D5W MINI-BAG PLUS 50 ML IV SCH (02:00)
[2024-03-05] MEDS: NS 1,000 ML IV ONE (02:33)
[2024-03-05] MEDS: MAG SULF 1GM/100ML (MAG RUN) 1 GM in IV 1 EA IV SCH (03:39)
[2024-03-05] MEDS: PIPERACILLIN/TAZOBACTAM SOD 4.5 GM in D5W MINI-BAG PLUS 50 ML IV SCH (03:50)
[2024-03-05] MEDS: ACETAMINOPHEN TAB 650MG DOSE (2X325MG) PO PRN (05:04)
[2024-03-05 05:52] LABS: HEMATOCRIT 39.5 % (42.0-52.0); MEAN CORPUSCULAR HEMOGLOBIN 31.1 pg (27.0-33.0); MEAN CORPUSCULAR HGB CONC 33.9 g/dl (32.0-36.5); MEAN CORPUSCULAR VOLUME 91.6 fl (80.0-96.0); PLATELET COUNT, AUTOMATED 141 10^3/uL (150-450); RED BLOOD COUNT 4.31 10^6/uL (4.30-6.10); WHITE BLOOD COUNT 5.8 10^3/uL (4.0-10.0)
[2024-03-05 05:54] LABS: HEMOGLOBIN 13.4 g/dl (13.5-17.5)
[2024-03-05] MEDS ORDERED: KETOROLAC TROMETHAMINE 10 MG TAB PO PRN (06:00)
[2024-03-05] MEDS ORDERED: KETOROLAC 30 MG/ML 1ML VIAL IV PRN ×2 (06:00)
[2024-03-05 06:40] LABS: PROCALCITONIN 0.36 ng/ml
[2024-03-05 06:41] LABS: ALBUMIN 3.5 G/DL (3.2-5.2); ALKALINE PHOSPHATASE 80 U/L (46-116); ALT/SGPT 35 U/L (7.0-40); AST/SGOT 16 U/L (<34); BLOOD UREA NITROGEN 13 MG/DL (9-23); CALCIUM LEVEL 8.7 MG/DL (8.5-10.1); CARBON DIOXIDE LEVEL 29 MMOL/L (20-31); CHLORIDE LEVEL 101 MMOL/L (98-107); GLOMERULAR FILTRATION RATE > 60.0 (>56); GLUCOSE, FASTING 121 MG/DL (60-100); MAGNESIUM LEVEL 2.1 MG/DL (1.8-2.4); POTASSIUM SERUM 3.9 MMOL/L (3.5-5.1); SODIUM LEVEL 138 MMOL/L (136-145)
[2024-03-05] MEDS: INSULIN LISPRO (NovoLOG) PER UNIT SC SCH ×2 (08:17→21:00)
[2024-03-05] MEDS: SERTRALINE 100 MG TAB PO SCH (08:18)
[2024-03-05] MEDS: PANTOPRAZOLE 40MG TAB (PROTONIX) PO SCH (08:18)
[2024-03-05] MEDS: ENOXAPARIN 40MG/0.4ML SYRINGE (J1650 PER 10MG) SC SCH (08:18)
[2024-03-05] MEDS: DULoxetine 30MG CAPSULE (CYMBALTA) PO SCH (08:18)
[2024-03-05] MEDS: OMEGA-3 1000MG CAPSULE PO SCH (08:18)
[2024-03-05] MEDS: DOCUSATE SODIUM 100MG CAPSULE PO SCH (08:18)
[2024-03-05] MEDS: ATORVASTATIN 20 MG TAB PO SCH (08:18)
[2024-03-05] MEDS: ASPIRIN 81MG ENTERIC TABLET PO SCH (08:18)
[2024-03-05] MEDS ORDERED: KETOCONAZOLE 2% CREAM TOP SCH (09:00)
[2024-03-05] MEDS ORDERED: MELOXICAM (MOBIC) 7.5 MG TAB PO SCH (09:00)
[2024-03-05] MEDS: VANCOMYCIN HCL 1,000 MG, VIAL MATE ADAPTER 1 EACH in NS 250 ML IV SCH (10:02)
[2024-03-05] MEDS: CLOTRIMAZOLE 1% TOPICAL CREAM 30GM TOP SCH (11:58)
[2024-03-05] MEDS: FIORICET TAB PO ONE (18:05)
[2024-03-05] MEDS: IBUPROFEN 600MG TAB PO PRN (23:43)
[2024-03-06] VITALS (7 sets, daily range): BP systolic 107–136; BP diastolic 71–87; TEMP 98.5–100; O2SAT 94–95
[2024-03-06 06:18] LABS: BASO % 0.5 % (0.0-1.0); HEMATOCRIT 36.5 % (42.0-52.0); HEMOGLOBIN 12.5 g/dl (13.5-17.5); LYMPH # 0.4 10^3/uL (1.5-5.0); MEAN CORPUSCULAR HGB CONC 34.2 g/dl (32.0-36.5); MEAN CORPUSCULAR VOLUME 90.6 fl (80.0-96.0); MONO # 0.4 10^3/uL (0.0-0.8); MONO % 9.8 % (2.0-8.0); NEUTROPHILS # 3.1 10^3/uL (1.5-8.5); NEUTROPHILS % 77.4 % (36.0-66.0); PLATELET COUNT, AUTOMATED 107 10^3/uL (150-450); RED BLOOD COUNT 4.03 10^6/uL (4.30-6.10)
[2024-03-06 06:46] LABS: BLOOD UREA NITROGEN 9 MG/DL (9-23); CALCIUM LEVEL 8.4 MG/DL (8.5-10.1); CARBON DIOXIDE LEVEL 27 MMOL/L (20-31); CHLORIDE LEVEL 105 MMOL/L (98-107); GLOMERULAR FILTRATION RATE > 60.0 (>56); GLUCOSE, FASTING 131 MG/DL (60-100); MAGNESIUM LEVEL 1.7 MG/DL (1.8-2.4); POTASSIUM SERUM 3.4 MMOL/L (3.5-5.1); SODIUM LEVEL 140 MMOL/L (136-145)
[2024-03-06] MEDS: ASPIRIN 81MG ENTERIC TABLET PO SCH (08:02)
[2024-03-06] MEDS: SENOKOT S TAB PO SCH (08:03)
[2024-03-06] MEDS: MAG SULF 1GM/100ML (MAG RUN) 1 GM in IV 1 EA IV SCH (08:42)
[2024-03-06] MEDS: POTASSIUM CHLORIDE 10MEQ SR TABLET PO ONE (08:44)
[2024-03-06] MEDS: FIORICET TAB PO PRN (11:07)
[2024-03-07 03:00] VITALS: BP 122/77; TEMP 99.5; O2SAT 94
[2024-03-07 06:00] VITALS: BP 145/91; TEMP 98.6; O2SAT 95
[2024-03-07 06:07] LABS: BASO % 0.7 % (0.0-1.0); EOS # 0.1 10^3/uL (0.0-0.5); EOS % 2.9 % (0.0-3.0); HEMATOCRIT 37.7 % (42.0-52.0); HEMOGLOBIN 12.8 g/dl (13.5-17.5); LYMPH # 0.7 10^3/uL (1.5-5.0); LYMPH % 25.7 % (24.0-44.0); MEAN CORPUSCULAR HEMOGLOBIN 30.2 pg (27.0-33.0); MEAN CORPUSCULAR VOLUME 88.9 fl (80.0-96.0); MONO # 0.4 10^3/uL (0.0-0.8); MONO % 14.7 % (2.0-8.0); NEUTROPHILS # 1.5 10^3/uL (1.5-8.5); NEUTROPHILS % 55.6 % (36.0-66.0); PLATELET COUNT, AUTOMATED 105 10^3/uL (150-450); RED BLOOD COUNT 4.24 10^6/uL (4.30-6.10); WHITE BLOOD COUNT 2.7 10^3/uL (4.0-10.0)
[2024-03-07 06:25] VITALS: BP 122/77; TEMP 99.5; O2SAT 94
[2024-03-07 06:34] LABS: BLOOD UREA NITROGEN 8 MG/DL (9-23); CALCIUM LEVEL 8.8 MG/DL (8.5-10.1); CARBON DIOXIDE LEVEL 30 MMOL/L (20-31); CHLORIDE LEVEL 102 MMOL/L (98-107); CREATININE FOR GFR 0.77 MG/DL (0.70-1.30); GLOMERULAR FILTRATION RATE > 60.0 (>56); GLUCOSE, FASTING 131 MG/DL (60-100); MAGNESIUM LEVEL 1.9 MG/DL (1.8-2.4); POTASSIUM SERUM 3.8 MMOL/L (3.5-5.1); SODIUM LEVEL 138 MMOL/L (136-145)
[2024-03-07] MEDS ORDERED: AMOX875T2 PO (09:49)
[2024-03-07] MEDS ORDERED: BACI1CAP PO (09:49)
[2024-03-07] MEDS: cefTRIAXone SOD 2 GM in D5W MINI-BAG PLUS 50 ML IV SCH (11:08)
== END 2024-03-07 14:53 | disposition home or self-care (01) | DRG 872 ==
LOC: M ED 19:01 → M ED INP 23:14 → M MSPAV 03-05 01:44
PROVIDERS: ADMIT Internal Medicine; ATTEND General Practice
DX: A41.51 Sepsis due to Escherichia coli [E. coli] (principal); N39.0 Urinary tract infection, site not specified; E87.20 Acidosis, unspecified; D61.818 Other pancytopenia; E78.5 Hyperlipidemia, unspecified; E03.9 Hypothyroidism, unspecified; I10 Essential (primary) hypertension; L40.9 Psoriasis, unspecified; E55.9 Vitamin D deficiency, unspecified; E11.9 Type 2 diabetes mellitus without complications; G47.33 Obstructive sleep apnea (adult) (pediatric); F41.9 Anxiety disorder, unspecified; F32.A Depression, unspecified; E87.6 Hypokalemia; Z79.899 Other long term (current) drug therapy; Z79.82 Long term (current) use of aspirin; Z96.653 Presence of artificial knee joint, bilateral; Z87.891 Personal history of nicotine dependence; M48.061 Spinal stenosis, lumbar region without neurogenic claudication

== ENCOUNTER → 2024-03-17 | Outpatient (CLI) | payer MEDICARE, MEDICAID ==
[~2024-03-17] MED LIST changes: +AMOX875T2 PO; +BACI1CAP PO; +COSE1INJ4 SC; +ECOT81TA5 PO
== END ==
LOC: M SLEEP 20:00
PROVIDERS: ATTEND Nurse Practitioner Family
DX: G47.33 Obstructive sleep apnea (adult) (pediatric) (principal)

== ENCOUNTER → 2024-04-02 | Outpatient (CLI) | payer MEDICARE, MEDICAID, OTHER | LOC: M SOG 15:15 | PROVIDERS: ATTEND Orthopaedic Surgery | DX: Z96.653 Presence of artificial knee joint, bilateral (principal) ==

== ENCOUNTER 2024-04-03 09:15 | Outpatient (RCR) | payer MEDICARE, MEDICAID | END 2024-04-11 | LOC: M PT 09:15 | PROVIDERS: ATTEND Orthopaedic Surgery | DX: Z47.89 Encounter for other orthopedic aftercare (principal); Z96.652 Presence of left artificial knee joint ==

== ENCOUNTER → 2024-04-16 | Outpatient (REF) | payer MEDICARE, MEDICAID ==
[2024-04-16 18:36] LABS: BASO % 0.7 % (0.0-1.0); EOS # 0.1 10^3/uL (0.0-0.5); EOS % 1.6 % (0.0-3.0); HEMATOCRIT 43.1 % (42.0-52.0); HEMOGLOBIN 15.1 g/dl (13.5-17.5); LYMPH # 1.2 10^3/uL (1.5-5.0); LYMPH % 20.8 % (24.0-44.0); MEAN CORPUSCULAR HEMOGLOBIN 31.5 pg (27.0-33.0); MONO # 0.5 10^3/uL (0.0-0.8); MONO % 9.1 % (2.0-8.0); NEUTROPHILS # 3.8 10^3/uL (1.5-8.5); NEUTROPHILS % 67.6 % (36.0-66.0); PLATELET COUNT, AUTOMATED 235 10^3/uL (150-450); RED BLOOD COUNT 4.79 10^6/uL (4.30-6.10); WHITE BLOOD COUNT 5.6 10^3/uL (4.0-10.0)
[2024-04-16 19:00] LABS: HEMOGLOBIN A1c 5.6 % (4.0-6.0)
[2024-04-16 19:07] LABS: ALBUMIN 3.7 G/DL (3.2-5.2); ALKALINE PHOSPHATASE 84 U/L (46-116); ALT/SGPT 39 U/L (7.0-40); AST/SGOT 16 U/L (<34); BILIRUBIN,TOTAL 0.6 MG/DL (0.3-1.2); BLOOD UREA NITROGEN 13 MG/DL (9-23); CALCIUM LEVEL 9.6 MG/DL (8.5-10.1); CARBON DIOXIDE LEVEL 30 MMOL/L (20-31); CHLORIDE LEVEL 104 MMOL/L (98-107); CHOLESTEROL LEVEL 131 MG/DL (<200); CHOLESTEROL RISK RATIO 4.38 (<5); CREATININE FOR GFR 0.77 MG/DL (0.70-1.30); GLOMERULAR FILTRATION RATE > 60.0 (>56); GLUCOSE, FASTING 109 MG/DL (60-100); HDL CHOLESTEROL 29.9 MG/DL (>40); LDL CHOLESTEROL 50.9 MG/DL (<100); MAGNESIUM LEVEL 1.8 MG/DL (1.8-2.4); NON-HDL-C 101.1 MG/DL; POTASSIUM SERUM 3.6 MMOL/L (3.5-5.1); SODIUM LEVEL 142 MMOL/L (136-145); TOTAL PROTEIN 6.7 G/DL (5.7-8.2); TRIGLYCERIDES LEVEL 251 MG/DL (<150)
[2024-04-16 19:09] LABS: THYROID STIMULATING HORMONE 3.974 uIU/ML (0.55-4.78)
== END ==
LOC: M LAB REF 16:42
PROVIDERS: ATTEND Nurse Practitioner Family
DX: E66.9 Obesity, unspecified (principal); E07.9 Disorder of thyroid, unspecified

== ENCOUNTER → 2024-05-05 | Outpatient (CLI) | payer MEDICARE, MEDICAID | LOC: M RAD 07:44 | PROVIDERS: ATTEND Internal Medicine Hematology & Oncology | DX: R16.2 Hepatomegaly with splenomegaly, not elsewhere classified (principal); K80.20 Calculus of gallbladder without cholecystitis without obstruction ==

== ENCOUNTER → 2024-07-09 | Outpatient (CLI) | payer MEDICARE, MEDICAID ==
[~2024-07-09] MED LIST changes: +METH-1164 PO
== END ==
LOC: M SLEEP 20:00
PROVIDERS: ATTEND Nurse Practitioner Family
DX: G47.33 Obstructive sleep apnea (adult) (pediatric) (principal)

== ENCOUNTER 2024-07-23 10:30 | Emergency (ER) | payer OTHER ==
[~2024-07-23] VITALS: Ht 154.9 cm; Wt 124.0 kg
[~2024-07-23 10:30] MED LIST changes: -METH-1164 PO
[2024-07-23] MEDS: KETOROLAC 60MG 2ML VIAL IM ONE (13:14)
[2024-07-23] MEDS: diazePAM 5MG TABLET PO ONE (13:14)
[2024-07-23 13:26] VITALS: TEMP 96.5
[2024-07-23] MEDS ORDERED: NAPR-837 PO (14:33)
[2024-07-23] MEDS ORDERED: METH-1164 PO (14:33)
[2024-07-23 14:46] VITALS: BP 137/81; O2SAT 100
== END 2024-07-23 14:49 | disposition home or self-care (01) ==
LOC: M ED 10:30
DX: M54.50 Low back pain, unspecified (principal); V49.40XA Driver injured in collision with unspecified motor vehicles in traffic accident, initial encounter; M47.896 Other spondylosis, lumbar region; M47.897 Other spondylosis, lumbosacral region; F41.9 Anxiety disorder, unspecified; F32.A Depression, unspecified; E11.9 Type 2 diabetes mellitus without complications; I10 Essential (primary) hypertension; Y92.9 Unspecified place or not applicable; Y93.89 Activity, other specified; Y99.9 Unspecified external cause status; Z79.82 Long term (current) use of aspirin; Z79.02 Long term (current) use of antithrombotics/antiplatelets; Z79.811 Long term (current) use of aromatase inhibitors; Z79.899 Other long term (current) drug therapy
CPT/HCPCS: 72125; 72131; 96372; 99283; J1885

== ENCOUNTER → 2024-08-06 | Outpatient (CLI) | payer OTHER ==
[~2024-08-06] MED LIST changes: +METH-1164 PO
== END ==
LOC: M SOG 07:23
PROVIDERS: ATTEND Orthopaedic Surgery
DX: Z96.651 Presence of right artificial knee joint (principal); Z96.652 Presence of left artificial knee joint

== ENCOUNTER → 2024-08-13 | Outpatient (CLI) | payer OTHER | LOC: M SOG 07:22 | PROVIDERS: ATTEND Orthopaedic Surgery | DX: Z96.653 Presence of artificial knee joint, bilateral (principal) ==

== ENCOUNTER 2024-08-28 08:09 | Outpatient (RCR) | payer MEDICARE, OTHER | END 2024-09-11 | LOC: M PT 08:09 | PROVIDERS: ATTEND Orthopaedic Surgery | DX: M54.50 Low back pain, unspecified (principal); E78.5 Hyperlipidemia, unspecified ==

== ENCOUNTER → 2024-09-11 | Outpatient (REF) | payer MEDICARE, MEDICAID ==
[2024-09-11 19:17] LABS: CHOLESTEROL RISK RATIO 4.32 (<5); HDL CHOLESTEROL 37.7 MG/DL (>40); LDL CHOLESTEROL 76.5 MG/DL (<100); NON-HDL-C 125.3 MG/DL
== END ==
LOC: M LAB REF 17:37
PROVIDERS: ATTEND Nurse Practitioner Family
DX: E78.5 Hyperlipidemia, unspecified (principal)

== ENCOUNTER → 2024-12-09 | Outpatient (CLI) | payer MEDICARE, MEDICAID ==
[2024-12-09 15:50] LABS: ALKALINE PHOSPHATASE 92 U/L (40-129); ALT/SGPT 71 U/L (7.0-40); AST/SGOT 38 U/L (<34); BILIRUBIN,TOTAL 0.6 MG/DL (0.3-1.2); BLOOD UREA NITROGEN 16 MG/DL (9-23); CALCIUM LEVEL 9.7 MG/DL (8.5-10.1); CARBON DIOXIDE LEVEL 34 MMOL/L (20-31); CHLORIDE LEVEL 95 MMOL/L (98-107); CREATININE FOR GFR 0.77 MG/DL (0.70-1.30); GLOMERULAR FILTRATION RATE > 60.0 (>56); GLUCOSE, FASTING 435 MG/DL (60-100); POTASSIUM SERUM 4.1 MMOL/L (3.5-5.1); SODIUM LEVEL 138 MMOL/L (136-145); TOTAL PROTEIN 7.2 G/DL (5.7-8.2)
[2024-12-09 15:55] LABS: HEMOGLOBIN A1c 9.4 % (4.0-6.0)
== END ==
LOC: M LAB 13:52
PROVIDERS: ATTEND Nurse Practitioner Family
DX: L30.4 Erythema intertrigo (principal); Z79.899 Other long term (current) drug therapy

== ENCOUNTER → 2024-12-15 | Outpatient (CLI) | payer MEDICARE, MEDICAID ==
[2024-12-15 11:39] LABS: BASO % 0.8 % (0.0-1.0); EOS # 0.1 10^3/uL (0.0-0.5); EOS % 1.7 % (0.0-3.0); HEMATOCRIT 43.5 % (42.0-52.0); HEMOGLOBIN 15.4 g/dl (13.5-17.5); LYMPH # 1.1 10^3/uL (1.5-5.0); LYMPH % 21.3 % (24.0-44.0); MEAN CORPUSCULAR HEMOGLOBIN 32.2 pg (27.0-33.0); MEAN CORPUSCULAR HGB CONC 35.4 g/dl (32.0-36.5); MONO # 0.5 10^3/uL (0.0-0.8); MONO % 9.2 % (2.0-8.0); NEUTROPHILS # 3.5 10^3/uL (1.5-8.5); NEUTROPHILS % 66.8 % (36.0-66.0); PLATELET COUNT, AUTOMATED 166 10^3/uL (150-450); RED BLOOD COUNT 4.78 10^6/uL (4.30-6.10); WHITE BLOOD COUNT 5.3 10^3/uL (4.0-10.0)
[2024-12-15 12:03] LABS: HEMOGLOBIN A1c 9.3 % (4.0-6.0)
[2024-12-15 12:06] LABS: ALBUMIN 3.8 G/DL (3.2-5.2); ALKALINE PHOSPHATASE 69 U/L (40-129); ALT/SGPT 79 U/L (7.0-40); AST/SGOT 45 U/L (<34); BILIRUBIN,TOTAL 0.8 MG/DL (0.3-1.2); BLOOD UREA NITROGEN 15 MG/DL (9-23); CALCIUM LEVEL 9.1 MG/DL (8.5-10.1); CARBON DIOXIDE LEVEL 33 MMOL/L (20-31); CHLORIDE LEVEL 99 MMOL/L (98-107); CHOLESTEROL LEVEL 171 MG/DL (<200); CREATININE FOR GFR 0.83 MG/DL (0.70-1.30); GLOMERULAR FILTRATION RATE > 60.0 (>56); GLUCOSE, FASTING 192 MG/DL (60-100); HDL CHOLESTEROL 33.5 MG/DL (>40); LDL CHOLESTEROL 94.5 MG/DL (<100); MAGNESIUM LEVEL 1.7 MG/DL (1.8-2.4); NON-HDL-C 137.5 MG/DL; POTASSIUM SERUM 3.7 MMOL/L (3.5-5.1); SODIUM LEVEL 140 MMOL/L (136-145); TOTAL PROTEIN 6.8 G/DL (5.7-8.2); TRIGLYCERIDES LEVEL 215 MG/DL (<150)
[2024-12-15 12:08] LABS: THYROID STIMULATING HORMONE 4.726 uIU/ML (0.55-4.78)
== END ==
LOC: M RAD 09:44
PROVIDERS: ATTEND Nurse Practitioner Family
DX: M25.512 Pain in left shoulder (principal); E66.01 Morbid (severe) obesity due to excess calories; E11.9 Type 2 diabetes mellitus without complications; E78.5 Hyperlipidemia, unspecified

== ENCOUNTER → 2025-03-13 | Outpatient (REF) | payer MEDICARE, MEDICAID ==
[~2025-03-13] MED LIST changes: +KETO120S5 TOP; -KETO2SHA8 TOP
[2025-03-13 13:02] LABS: ALBUMIN 3.7 G/DL (3.2-5.2); ALKALINE PHOSPHATASE 81 U/L (40-129); ALT/SGPT 49 U/L (7.0-40); AST/SGOT 34 U/L (<34); BILIRUBIN,TOTAL 0.6 MG/DL (0.3-1.2); BLOOD UREA NITROGEN 14 MG/DL (9-23); CALCIUM LEVEL 9.2 MG/DL (8.5-10.1); CARBON DIOXIDE LEVEL 31 MMOL/L (20-31); CHLORIDE LEVEL 97 MMOL/L (98-107); CHOLESTEROL LEVEL 166 MG/DL (<200); CHOLESTEROL RISK RATIO 5.62 (<5); CREATININE FOR GFR 0.77 MG/DL (0.70-1.30); GLOMERULAR FILTRATION RATE > 90.0 (>56); GLUCOSE, FASTING 368 MG/DL (60-100); HDL CHOLESTEROL 29.5 MG/DL (>40); LDL CHOLESTEROL 82.7 MG/DL (<100); NON-HDL-C 136.5 MG/DL; POTASSIUM SERUM 4.1 MMOL/L (3.5-5.1); SODIUM LEVEL 137 MMOL/L (136-145); TOTAL PROTEIN 6.7 G/DL (5.7-8.2); TRIGLYCERIDES LEVEL 269 MG/DL (<150)
[2025-03-13 13:37] LABS: HEMOGLOBIN A1c 10.9 % (4.0-6.0)
== END ==
LOC: M LAB REF 12:11
PROVIDERS: ATTEND Nurse Practitioner Family
DX: E11.9 Type 2 diabetes mellitus without complications (principal); E78.5 Hyperlipidemia, unspecified

== ENCOUNTER → 2025-06-12 | Outpatient (REF) | payer MEDICARE, MEDICAID ==
[2025-06-12 14:43] LABS: ALT/SGPT 41 U/L (7.0-40); AST/SGOT 27 U/L (<34); CALCIUM LEVEL 9.8 MG/DL (8.3-10.6); CARBON DIOXIDE LEVEL 29 MMOL/L (20-31); CHLORIDE LEVEL 104 MMOL/L (98-107); CHOLESTEROL LEVEL 170 MG/DL (<200); CHOLESTEROL RISK RATIO 5.19 (<5); CREATININE FOR GFR 0.88 MG/DL (0.70-1.30); GLOMERULAR FILTRATION RATE > 90.0 (>49); LDL CHOLESTEROL 88.7 MG/DL (<100); NON-HDL-C 137.3 MG/DL; POTASSIUM SERUM 3.9 MMOL/L (3.5-5.1); SODIUM LEVEL 145 MMOL/L (136-145); TRIGLYCERIDES LEVEL 243 MG/DL (<150)
[2025-06-12 15:00] LABS: ESTIMATED AVERAGE GLUCOSE 146.0 MG/DL (60-110)
== END ==
LOC: M LAB REF 14:07
PROVIDERS: ATTEND Nurse Practitioner Family
DX: E11.9 Type 2 diabetes mellitus without complications (principal); E78.5 Hyperlipidemia, unspecified